=== PATIENT | male | born 1960 | race Caucasian/White ===

== ENCOUNTER 2017-07-16 16:53 | Emergency (ER) | payer MEDICARE ==
--- NOTE | 2017-07-16 18:44 | RAD ---
LEFT HAND RADIOGRAPHS THREE VIEWS: 07/16/2017 PROVIDED CLINICAL HISTORY: Left fourth digit pain status post injury. FINDINGS: There is no definite evidence for fracture or other acute osseous abnormality. If there is persisten t clinical concern, conservative management and follow-up imaging are advised. IMPRESSION: As above. POS: CARLOS A
== END 2017-07-16 17:59 | disposition home or self-care (01) ==
LOC: SCSER 16:53
DX: S63.615A Unspecified sprain of left ring finger, initial encounter (principal); Y99.0 Civilian activity done for income or pay; D13.7 Benign neoplasm of endocrine pancreas; E03.9 Hypothyroidism, unspecified; G62.9 Polyneuropathy, unspecified; Z79.899 Other long term (current) drug therapy; W22.8XXA Striking against or struck by other objects, initial encounter

== ENCOUNTER 2017-12-16 22:32 | Emergency (ER) | payer MEDICARE | END 2017-12-16 23:25 | disposition home or self-care (01) | LOC: SCSER 22:32 | DX: H60.92 Unspecified otitis externa, left ear (principal); E03.9 Hypothyroidism, unspecified; G62.9 Polyneuropathy, unspecified; D13.7 Benign neoplasm of endocrine pancreas | CPT/HCPCS: 99282 ==

== ENCOUNTER 2018-05-03 00:10 | Emergency (ER) | payer MEDICARE ==
[2018-05-03 00:44] LABS: #Eosinphils 0.3 thou/uL (0.0-0.7); #Lymphocytes 1.8 thou/uL (1.20-3.40); #Monocytes 0.8 thou/uL (0.11-0.59); #Neutrophils 5.3 thou/uL (1.40-6.50); %Basophils 0.4 % (0.0-1.0); %Eosinophils 3.1 % (0.0-10.0); %Lymphocytes 22.5 % (21.0-51.0); %Monocytes 9.7 % (0.0-10.0); %Neutrophils 64.3 % (42.0-75.0); Hemoglobin 16.2 g/dL (14.0-18.0); Mean Corpuscular HGB CONC 32.9 g/dL (32.0-36.0); Mean Corpuscular Hemoglobin 31.8 pg (27.0-31.0); Mean Corpuscular Volume 96.8 fL (78.0-98.0); Mean Platelet Volume 7.5 fL (7.4-10.4); Platelet Count 227 thou/uL (130-400); RBC Distribution Width 12.6 % (11.5-14.5); Red Blood Cell (RBC) Count 5.11 mill/uL (4.70-6.10); White Blood Cell (WBC) Count 8.2 thou/uL (4.8-10.8)
[2018-05-03 01:07] LABS: ALT (SGPT) 34 U/L (8-55); AST (SGOT) 39 U/L (5-34); Albumin 4.2 g/dL (3.5-5.0); Alkaline Phosphatase 37 U/L (40-150); Anion Gap 15 mmol/L (10-20); BUN (Urea Nitrogen) 10 mg/dL (8.4-25.7); Bilirubin, Total 0.4 mg/dL (0.2-1.2); Calc. Creatinine Clearance 0 mL/min (70-130); Calcium 8.9 mg/dL (7.8-10.44); Carbon Dioxide 22 mmol/L (22-29); Chloride 104 mmol/L (98-107); Estimated GFR-MDRD 74; Globulin 3.3 g/dL (2.4-3.5); Glucose 94 mg/dL (70-105); Potassium 4.6 mmol/L (3.5-5.1); Protein, Total 7.5 g/dL (6.0-8.3); Sodium 136 mmol/L (136-145)
[2018-05-03] MEDS ORDERED: HYDROcodone/Acetaminophen 10/325 mg Tablet ONE (01:30)
[2018-05-03] MEDS ORDERED: Ketorolac Tromethamine 30 MG/ML VIAL ONE (01:30)
--- NOTE | 2018-05-03 07:47 | CT ---
CT OF THE BRAIN WITHOUT CONTRAST: INDICATION: Syncope, collapsed hitting head with low blood sugar. COMPARISON: CT of the brain dated 07/10/2014. FINDINGS: No acute infarct, hemorrhage, or hydrocephalus is present. Septum pellucidum and third ventricle are midline. There are air fluid levels within the left maxillary sinuses, ethmoid air cells, frontal s inus, and sphenoid sinus. No visible facial fracture is grossly evident. There are partial effusion s within the mastoid air cells bilaterally. IMPRESSION: 1. No acute intracranial abnormality. 2. Multiple air fluid levels within the frontal sinus, ethmoid air cells, maxillary sinuses, and sph enoid sinus can be seen with acute sinusitis. POS: BH
--- NOTE | 2018-05-03 07:49 | CT ---
CT OF CERVICAL SPINE WITHOUT CONTRAST: INDICATION: Syncopal episode with fall and neck pain. COMPARISON: Prior exam dated 07/10/2014. 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 No acute fracture or subluxation is evident. There is mild multilevel spondylosis of the cervical spine. Craniocervical junction appears within normal limits. There are partial mastoid effusions bilaterally. Lung apice s are clear. IMPRESSION: 1. No acute fracture or subluxation is evident. 2. Bilateral mastoid effusions. POS: BH
--- NOTE | 2018-05-10 10:38 | EKG ---
Test Reason : Blood Pressure : / mmHG Vent. Rate : 062 BPM Atrial Rate : 062 BPM P-R Int : 154 ms QRS Dur : 112 ms QT Int : 412 ms P-R-T Axes : 048 -48 038 degrees QTc Int : 418 ms Normal sinus rhythm Left anterior fascicular block Abnormal ECG Confirmed by RD ALBRIGHT ([id number]), digital editor JOSÉ MIGUEL FAN ([id number]) on 05/10/2018 10:37:21 AM Referred By: Confirmed By:RD ALBRIGHT
== END 2018-05-03 02:05 | disposition home or self-care (01) ==
LOC: ERS 00:10
DX: S16.1XXA Strain of muscle, fascia and tendon at neck level, initial encounter (principal); S00.93XA Contusion of unspecified part of head, initial encounter; J32.9 Chronic sinusitis, unspecified; E16.2 Hypoglycemia, unspecified; Z79.899 Other long term (current) drug therapy; W22.8XXA Striking against or struck by other objects, initial encounter
CPT/HCPCS: 36416; 70450; 72125; 80053; 85025; 93005; 96374; J1885

== ENCOUNTER 2018-06-13 15:48 | Inpatient (IN) | payer MEDICARE ==
[~2018-06-13 15:48] MED LIST: ISOVUE-370 76%-LOCM 1 ML ONE
[2018-06-13 17:42] LABS: Hemoglobin 16.3 g/dL (14.0-18.0); Mean Corpuscular HGB CONC 32.5 g/dL (32.0-36.0); Mean Corpuscular Hemoglobin 31.3 pg (27.0-31.0); Mean Corpuscular Volume 96.1 fL (78.0-98.0); Mean Platelet Volume 7.8 fL (7.4-10.4); Platelet Count 158 thou/uL (130-400); RBC Distribution Width 12.3 % (11.5-14.5); Red Blood Cell (RBC) Count 5.22 mill/uL (4.70-6.10); White Blood Cell (WBC) Count 23.5 thou/uL (4.8-10.8)
[2018-06-13] MEDS ORDERED: Morphine 4 MG/ML VIAL ONE (17:58)
[2018-06-13] MEDS ORDERED: Ondansetron PF 4 MG/2 ML Vial ONE (17:59)
[2018-06-13 18:01] LABS: Anion Gap 12 mmol/L (10-20); BUN (Urea Nitrogen) 17 mg/dL (8.4-25.7); Calc. Creatinine Clearance 0 mL/min (70-130); Calcium 9.5 mg/dL (7.8-10.44); Carbon Dioxide 28 mmol/L (22-29); Chloride 100 mmol/L (98-107); Estimated GFR-MDRD 60; Glucose 111 mg/dL (70-105); Potassium 3.9 mmol/L (3.5-5.1); Sodium 136 mmol/L (136-145)
[2018-06-13 18:03] LABS: Band 10 % (5-11); Lymphocytes 4 % (21-51); MDiff Complete? YES; Monocytes 3 % (0-10); Neutrophil 83 % (42-75); Platelet Morphology Comment Appears Adequate; RBC Morphology Normal; Vacuoles SLIGHT
--- NOTE | 2018-06-13 18:47 | CT ---
CONTRAST ENHANCED CT IMAGES PELVIS: 06/13/18 HISTORY: Pelvic pain. Contrast enhanced CT images of the pelvis is obtained. No evidence of free air seen in the pelvis. N o definite evidence of bowel obstruction or ileus seen. No evidence of pelvic abscess. The patient has had previous bilateral vasectomies. No definite evidence of pelvic fracture seen. Nonobstructing posterior aspect mid right renal calculus is seen. It measures approximately 4 mm. IMPRESSION: Unremarkable contrast enhanced CT images of the pelvis. POS: DARIA
[2018-06-13] MEDS ORDERED: Piperacillin/Tazobactam 4.5 GM VIAL ONE (18:51)
--- NOTE | 2018-06-13 19:03 | RAD ---
AP VIEW CHEST: 06/13/18 HISTORY: Cough for three months. AP view chest is obtained on 06/13/18. AP view chest demonstrates EKG leads seen over the chest. The lungs are well aerated. No evidence of active intrathoracic disease seen. No evidence of effusions, pneumonia, or pneumothorax seen. IMPRESSION: Unremarkable AP view chest. POS: [facility]
[2018-06-13] MEDS ORDERED: Clindamycin/D5W 900 mg/50 ml Premix Bag ONE (19:32)
[2018-06-13] MEDS ORDERED: Morphine 4 MG/ML VIAL SLOW IVP PRN (22:40)
[2018-06-13 23:02] VITALS: BMI 24.5
[2018-06-14] MEDS: Sodium Chloride 0.9% 1,000 ML IV SCH ×2 (00:53→14:17)
[2018-06-14] MEDS ORDERED: Acetaminophen 325 MG TAB PO PRN (01:02)
[2018-06-14] MEDS ORDERED: Ondansetron ODT 4 MG TAB PO PRN (01:20)
[2018-06-14] MEDS ORDERED: Calcium Carbonate 500 MG ChewTAB PO PRN (01:20)
[2018-06-14] MEDS ORDERED: Bisacodyl 5 MG TAB PO PRN (01:20)
[2018-06-14] MEDS ORDERED: Senokot S 8.6-50 MG TAB PO PRN (01:20)
[2018-06-14] MEDS ORDERED: Ondansetron PF 4 MG/2 ML Vial IVP PRN (01:20)
[2018-06-14] MEDS ORDERED: Polyethylene Glycol 3350 17 GM Packet PO PRN (01:26)
[2018-06-14] MEDS: cefTRIAXone\\ROCEPHIN 1 GM in Sodium Chloride 0.9% 100 ML IVPB SCH (02:08)
[2018-06-14] MEDS: Lorazepam 1 MG TAB PO PRN ×2 (02:14→21:20)
[2018-06-14] MEDS: diphenhydrAMINE 25 MG CAP PO PRN ×2 (02:14→23:57)
--- NOTE | 2018-06-14 02:32 | HP ---
The patient was seen and examined on June 13. PRIMARY CARE PHYSICIAN: Dr. Saunders. CHIEF COMPLAINT: Skin redness in the perineal area. HISTORY OF PRESENT ILLNESS: The patient is a 57-year-old male who presented to the emergency room from [facility] due to significant erythema and swelling in the groin area that started 3-4 days ago. This is progressively getting worse. He noticed 2 superficial skin abscesses, which he drained by himself. He also had a fever of up to 101 degree Fahrenheit along with chills. Over the last 2 days, the patient has not been eating and drinking well due to persistent nausea. He denies any diarrhea, abdominal pain, abdominal pain. He had some vomiting earlier that is improving. He denies any cough, shortness of breath, wheezing, or altered mentation. In the emergency room, initial vital signs showed temperature 98.9, respiration 18, pulse rate of 103 with a blood pressure of 121/70, O2 saturation of 95% on room air. He had a temperature of 101 at [facility]. He received 60 mg Toradol prior to ER arrival. PAST MEDICAL HISTORY: 1. History of nesidioblastosis of the pancreas. 2. Morbid obesity, status post gastric bypass. 3. Hypothyroidism. 4. Hypogonadism on testosterone supplement. 5. History of multiple pulmonary embolism. 6. History of renal calculi. 7. Gout. 8. Chronic pain syndrome. PAST SURGICAL HISTORY: 1. Cholecystectomy. 2. Skin cancer removal. 3. Excess skin removal from the abdomen. 4. Gastric bypass. 5. Vasectomy. 6. Gastric band revision in 2004. 7. Hernia repair. 8. Partial thyroidectomy. ALLERGIES: PATIENT IS UNABLE TO TOLERATE NSAIDS. CURRENT HOME MEDICATION: 1. Perry as needed. 2. Lorazepam as needed. 3. Zyrtec 10 mg daily. 4. Colchicine 0.6 mg daily. 5. Benadryl as needed. 6. Ferrous sulfate 325 mg daily. 7. Synthroid 100 mcg daily. 8. Tramadol 100 mg b.i.d. SOCIAL HISTORY: The patient currently lives at home with his family. No current use of smoking, alcohol, or drug use. He makes his own decision with the help of his family. FAMILY HISTORY: Positive for diabetes mellitus type 2. REVIEW OF SYSTEMS: All other review of systems was reviewed and were found negative. PHYSICAL EXAMINATION: All other review of systems was reviewed and were found negative. PHYSICAL EXAMINATION: VITAL SIGNS: As discussed above. GENERAL: A 57-year-old male in no apparent distress, feels better after ER treatment. HEENT: Head is atraumatic and normocephalic. Sclerae anicteric. Moist mucous membranes. No oral lesion. NECK: Supple. No JVD appreciated. No carotid bruit. LUNGS: Clear to auscultation bilaterally. No wheezing, rales, rhonchi. HEART: S1, S2 present. Regular rate and rhythm. No rubs or gallops appreciated. ABDOMEN: Soft, nontender. Bowel sounds present. EXTREMITIES: No edema or calf tenderness. NEUROLOGY: Grossly nonfocal. Moves all 4 extremities. GENITOURINARY: The patient had significant erythema along with induration in the perineal area. Healing folliculitis over the inguinal area. There was erythema over the scrotal skin without any skin breakdown. No tenderness over the testicle. The patient is circumcised. PSYCHIATRY: Alert awake oriented x3. LABORATORY FINDINGS: WBC 23.5 with hemoglobin 16.3, hematocrit 50.1, platelet 158. Chemistry showed sodium 136, potassium 3.9, chloride 100, bicarb 28, BUN 17, and creatinine 1.24. Lactic acid 1.5, calcium 9.5. IMAGIN. Chest x-ray by my review was negative for infiltrate. 2. CT of the pelvis done in the emergency room with contrast was negative. It showed a 4 mm non-obstructing mid right renal calculus. IMPRESSION: 1. Sepsis secondary to cellulitis with suspected abscess. 2. Dehydration with nausea and vomiting. 3. Chronic kidney disease, stage 2. 4. Hypothyroidism. 5. Chronic pain syndrome. 6. History of nesidioblastosis diagnosed in 2004 with several hypoglycemic events. 7. History of gout. 8. Anxiety. 9. Seasonal allergies. PLAN: The patient will be monitored on the medical floor. He received vancomycin and Zosyn in the emergency room along with clindamycin. We will start him on vancomycin and ceftriaxone. We will consult Infectious Disease. Pain control with IV morphine and Perry as needed. We will continue his home dose of tramadol. Resume all other home medications. We will monitor for hypoglycemia. The family is at the bedside. Recheck labs in a.m. Resume levothyroxine. Add blood cultures. Plan of care was discussed with the patient in detail. He stated understanding. Job ID: [id number] MTDD
[2018-06-14] MEDS: Morphine 2 MG/ML SYRINGE SLOW IVP PRN ×4 (02:42→21:22)
[2018-06-14 04:43] LABS: ALT (SGPT) 21 U/L (8-55); AST (SGOT) 19 U/L (5-34); Albumin 3.3 g/dL (3.5-5.0); Alkaline Phosphatase 33 U/L (40-150); Anion Gap 11 mmol/L (10-20); BUN (Urea Nitrogen) 17 mg/dL (8.4-25.7); Bilirubin, Total 0.5 mg/dL (0.2-1.2); Calc. Creatinine Clearance 91 mL/min (70-130); Calcium 8.9 mg/dL (7.8-10.44); Carbon Dioxide 25 mmol/L (22-29); Chloride 104 mmol/L (98-107); Estimated GFR-MDRD 83; Globulin 2.9 g/dL (2.4-3.5); Glucose 120 mg/dL (70-105); Magnesium 1.8 mg/dL (1.6-2.6); Potassium 3.2 mmol/L (3.5-5.1); Protein, Total 6.2 g/dL (6.0-8.3); Sodium 137 mmol/L (136-145)
[2018-06-14 04:57] LABS: Band 7 % (5-11); Hemoglobin 14.4 g/dL (14.0-18.0); Lymphocytes 8 % (21-51); MDiff Complete? YES; Mean Corpuscular HGB CONC 33.7 g/dL (32.0-36.0); Mean Corpuscular Hemoglobin 31.8 pg (27.0-31.0); Mean Corpuscular Volume 94.6 fL (78.0-98.0); Mean Platelet Volume 8.1 fL (7.4-10.4); Monocytes 8 % (0-10); Neutrophil 75 % (42-75); Platelet Count 150 thou/uL (130-400); Platelet Morphology Comment Appears Adequate; RBC Distribution Width 12.3 % (11.5-14.5); RBC Morphology Normal; Reactive Lymphocytes 2 % (0-10); Red Blood Cell (RBC) Count 4.51 mill/uL (4.70-6.10); White Blood Cell (WBC) Count 18.2 thou/uL (4.8-10.8)
[2018-06-14] MEDS: Levothyroxine Sodium 100 MCG TAB PO SCH (06:08)
[2018-06-14] MEDS ORDERED: Cetirizine HCl 10 MG TAB PO SCH (09:00)
[2018-06-14] MEDS: Vancomycin HCl 1 GM in Premix Bag 1 BAG IVPB SCH ×2 (09:33→20:51)
[2018-06-14] MEDS: HYDROcodone/Acetaminophen 10/325 mg Tablet PO PRN ×3 (09:39→18:02)
[2018-06-14] MEDS: Potassium Chloride 20 MEQ TAB PO SCH ×2 (09:40→17:15)
[2018-06-14] MEDS: traMADol HCl 50 MG TAB PO SCH ×2 (09:40→20:53)
[2018-06-14] MEDS: Ferrous Sulfate 325 MG TAB PO SCH (09:41)
[2018-06-14] MEDS: Saccharomyces boulardii 250 MG CAP PO SCH (09:41)
[2018-06-14] MEDS: Loratadine 10 MG TAB PO SCH (09:41)
[2018-06-14] MEDS: Colchicine 0.6 MG TAB PO SCH (09:41)
[2018-06-14] MEDS ORDERED: Nystatin Powder 15 GM BOT TOP PRN (10:25)
--- NOTE | 2018-06-14 11:56 | ULT ---
SCROTAL ULTRASOUND WITH GRAYSCALE AND DOPPLER COLOR FLOW: LIMITED PELVIC ULTRASOUND OF SOFT TISSUES: FINDINGS: Doppler evaluation does reveal flow to each testis. No intratesticular mass or torsion evident. No significant hydrocele. Small epididymal cyst formation noted. There is marked thickening of the scrotal soft tissues. Extensive edema with multifocal small collec tions is demonstrated throughout the regional soft tissues including the perianal, gluteal, and suprapubic soft tissues, indicative of diffuse soft tissue infection, with multiple localizing foci t hat may relate to numerous superimposed abscesses upon inflammatory/infectious edema. Reactive adenopathy is noted. IMPRESSION: 1. Extensive soft tissue infection of the suprapubic, perianal, and gluteal soft tissues. 2. Scrotal soft tissue thickening. 3. No evidence of testicular torsion or mass. Transcribed Date/Time: 06/14/2018 12:47 PM
[2018-06-14] MEDS: Triple Antibiotic Ointment 30 GM TUBE TOP SCH ×2 (13:08→20:52)
--- NOTE | 2018-06-14 14:39 | PDOC.PN ---
- Subjective Encounter Start Date: 06/14/18 Encounter Start Time: 14:37 Subjective: braun snot feel good. c/o severe pain in luciano perineal area -: c/o swelling,redness and induration in perineal and gluteal area -: fever last night and feels weak and nauseated - Objective Resuscitation Status - Order Detail: 06/14/18 01:20 Resuscitation Status Routine Resuscitation Status: FULL: Full Resuscitation MAR Reviewed: Yes Vital Signs & Weight: Vital Signs (12 hours) Temp Pulse Resp BP BP Pulse Ox 06/14/18 14:07 98.6 F 06/14/18 08:00 98 06/14/18 07:15 99.1 F 81 16 100/63 98 06/14/18 04:48 98.9 F 73 18 107/64 95 06/14/18 03:35 101.1 F H 06/14/18 03:03 102.5 F H Weight Admit Weight 165 lb 11.2 oz Weight 165 lb 11.2 oz Result Diagrams: 06/14/18 04:20 06/14/18 04:20 Additional Labs: Laboratory Tests 06/13/18 06/14/18 17:33 04:20 WBC 23.5 H 18.2 H Phys Exam - Physical Examination Constitutional: NAD HEENT: PERRLA, moist MMs, sclera anicteric, oral pharynx no lesions Neck: no nodes, no JVD, supple, full ROM Respiratory: no wheezing, no rales, no rhonchi, clear to auscultation bilateral Cardiovascular: RRR, no significant murmur Gastrointestinal: soft, non-tender, no distention, positive bowel sounds horijontal abdominal scar from :Tummy Tuck" Sx Musculoskeletal: no edema, pulses present Neurological: non-focal, normal sensation, moves all 4 limbs Psychiatric: normal affect, A&O x 3 Deviation from normal: extensive induration,localized in several areas around perineum w warmth & Dx/Plan (1) Sepsis Code(s): A41.9 - SEPSIS, UNSPECIFIED ORGANISM Status: Acute (2) Abscess or cellulitis of perineum Code(s): SMM9258 - Status: Acute (3) Hypokalemia Code(s): E87.6 - HYPOKALEMIA Status: Acute Comment: replace and recheck (4) Dehydration Code(s): E86.0 - DEHYDRATION Status: Acute Comment: on IVF (5) Hypothyroid Code(s): E03.9 - HYPOTHYROIDISM, UNSPECIFIED Status: Chronic Comment: on Synthyroid (6) Hypogonadism Code(s): [id number] - Status: Chronic Comment: On testosterone at home - Plan plan discussed w/ family, continue antibiotics, DVT proph w/SCDs Pelvic & testicular US done and does not show any specific abscess -: cont IV ABx .Awaiting ID recs -: HD stable. cont IVF.Add topical nystattin as physical -: exam show possible local candidiasis & folliculitis.start Topical ABX -: WBC improving.monitor. * . Review of Systems - Review of Systems Constitutional: fever, sweats, weakness, malaise. negative: chills, other ENT: negative: Ear Pain, Ear Discharge, Nose Pain, Nose Discharge, Nose Congestion, Mouth Pain, Mouth Swelling, Throat Pain, Throat Swelling, Other Respiratory: negative: Cough, Dry, Shortness of Breath, Hemoptysis, SOB with Excertion, Pleuritic Pain, Sputum, Wheezing Cardiovascular: negative: chest pain, palpitations, orthopnea, paroxysmal nocturnal dyspnea, edema, light headedness, other Gastrointestinal: negative: Nausea, Vomiting, Abdominal Pain, Diarrhea, Constipation, Melena, Hematochezia, Other Genitourinary: Other (as per subjective). negative: Dysuria, Frequency, Incontinence, Hematuria, Retention Skin: Other Neurological: negative: Weakness, Numbness, Incoordination, Change in Speech, Confusion, Seizures, Other - Medications/Allergies Allergies/Adverse Reactions: Allergies Allergy/AdvReac Type Severity Reaction Status Date / Time Insulins Allergy Severe Verified 06/14/18 02:21 NSAIDS (Non-Steroidal Allergy Verified 06/13/18 22:22 Anti-Inflamma Medications: Current Medications Acetaminophen (Tylenol) 650 mg PO Q4H PRN PRN Reason: Headache/Fever/Mild Pain 1-3 Last Admin: 06/14/18 02:50 Dose: 650 mg Hydrocodone Bitart/Acetaminophen ([place] 10/325) 1 tab PO Q4H PRN PRN Reason: Mild-Moderate Pain (1-5) Last Admin: 06/14/18 14:09 Dose: 1 tab Bisacodyl (Dulcolax) 10 mg PO DAILYPRN PRN PRN Reason: Constipation Calcium Carbonate (Tums) 1,000 mg PO Q4H PRN PRN Reason: Heartburn or Indigestion Colchicine (Colchicine) 0.6 mg PO DAILY [facility] Last Admin: 06/14/18 09:41 Dose: 0.6 mg Diphenhydramine HCl (Benadryl) 25 mg PO HS PRN PRN Reason: Insomnia Last Admin: 06/14/18 02:14 Dose: 25 mg Ferrous Sulfate (Feosol) 325 mg PO DAILY [facility] Last Admin: 06/14/18 09:41 Dose: 325 mg Sodium Chloride (Normal Saline 0.9%) 1,000 mls @ 75 mls/hr IV .[id number] [facility] Stop: 06/15/18 02:54 Last Admin: 06/14/18 14:17 Dose: 1,000 mls Vancomycin HCl 1 gm/ Device 200 mls @ 200 mls/hr IVPB Q12HR [facility] Last Admin: 06/14/18 09:33 Dose: 200 mls Ceftriaxone Sodium 1 gm/ (Sodium Chloride) 100 mls @ 200 mls/hr IVPB Q24HR [facility] Last Admin: 06/14/18 02:08 Dose: 100 mls Levothyroxine Sodium (Synthroid) 100 mcg PO 0600 [facility] Last Admin: 06/14/18 06:08 Dose: 100 mcg Lidocaine HCl (Lidocaine Hcl 4% Topical Alyssa) 2 ml TP BID [facility] Loratadine (Claritin) 10 mg PO DAILY [facility] Last Admin: 06/14/18 09:41 Dose: 10 mg Lorazepam (Ativan) 1 mg PO Q8HR PRN PRN Reason: Anxiety Last Admin: 06/14/18 02:14 Dose: 1 mg Miscellaneous Medication (Pharmacy To Dose) 1 each IVPB PRN PRN PRN Reason: Pharmacy to dose Morphine Sulfate (Morphine) 2 mg SLOW IVP Q4H PRN PRN Reason: Moderate to Severe Pain (6-10) Last Admin: 06/14/18 13:06 Dose: 2 mg Neomycin/Polymyxin/Bacitracin (Triple Antibiotic Ointment) 2 gm TOP BID [facility] Last Admin: 06/14/18 13:08 Dose: Not Given Nystatin (Mycostatin Powder) 1 gm TOP BID PRN PRN Reason: Topical Irritations Ondansetron HCl (Zofran Odt) 4 mg PO Q6H PRN PRN Reason: Nausea/Vomiting Ondansetron HCl (Zofran) 4 mg IVP Q6H PRN PRN Reason: Nausea/Vomiting Polyethylene Glycol (Miralax) 17 gm PO DAILY PRN PRN Reason: Constipation Potassium Chloride (K-Dur) 20 meq PO BID-[facility] Stop: 06/14/18 17:01 Last Admin: 06/14/18 09:40 Dose: 20 meq Saccharomyces Boulardii (Florastor) 250 mg PO DAILY [facility] Last Admin: 06/14/18 09:41 Dose: 250 mg Senna/Docusate Sodium (Senokot S) 2 tab PO BID PRN PRN Reason: Constipation Sodium Chloride (Flush - Normal Saline) 10 ml IVF PRN PRN PRN Reason: Saline Flush Tramadol HCl (Ultram) 100 mg PO BID [facility] Last Admin: 06/14/18 09:40 Dose: 100 mg
[2018-06-14] MEDS: Potassium Chloride 20 MEQ in Premix Bag 1 BAG IVPB SCH ×2 (16:39→23:57)
[2018-06-14] MEDS: LIDOCAINE HCL 4% Topical Sol (4 ML SOLN.PK.G.) TP SCH (20:52)
--- NOTE | 2018-06-14 23:29 | CON ---
DATE OF CONSULTATION: 06/14/2018 REASON FOR CONSULTATION: Perineal scrotal folliculitis. HISTORY OF PRESENT ILLNESS: A 57-year-old patient with a history of sleeve gastrectomy followed by gastric bypass who subsequently developed pulmonary embolism, which was an event associated with the immobility secondary to a surgical procedure. 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 He was diagnosed with nesidioblastosis. Other than that he had been doing quite well, has lost tremendous amount of weight about 400 pounds. He is retired and is quite affluent and has numerous residences throughout the country. He had just returned from a trip to [place] and [place] with his and then developed a very acute onset of groin inflammatory changes. The patient has the habit of shaving his pubic hair and scrotal hair. He was admitted, had a pelvis CT scan with no remarkable findings. He had a pelvic and renal ultrasound with extensive soft tissue inflammatory changes suprapubic, perianal and gluteal soft tissues and some scrotal soft tissue thickening. There was a testicular ultrasound with the findings of inflammatory change as described above. He has been started on broad-spectrum coverage with Rocephin and vancomycin. Currently, he feels still a quite painful skin in those areas. He has noticed purulent drainage in couple of spots. He denies headaches, no visual symptoms, sore throat, odynophagia, dysphagia, no dental pain, no back pain, no cough, sputum production, or chest pain. No abdominal pain or diarrhea. No dysuria or hematuria. No joint symptoms. No neurological symptoms. 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 PAST SURGICAL HISTORY: Cholecystectomy, skin cancer removal, gastric bypass and this is following a sleeve gastrectomy, vasectomy, hernia repair, partial thyroidectomy. ALLERGIES: NO SPECIFIC HYPERSENSITIVITY TO ANY MEDICATION. SOCIAL HISTORY: He is retired. No smoking history. No drug use history. MEDICATIONS BEFORE ADMISSION,: 1. Hydrocodone. 2. Synthroid. 3. Colchicine. 4. Sildenafil. 5. Tramadol. Currently is receivin. Dulcolax. 2. Ceftriaxone. 3. [place]. 4. Colchicine. 5. Levothyroxine. 6. Lorazepam. 7. Neomycin and polymyxin. 8. Ondansetron. 9. Potassium. 10. Tramadol. 11. Vancomycin. PHYSICAL EXAMINATION: VITAL SIGNS: T-max 102.5, now is 98.5, blood pressure 109/66, pulse 70, respirations 20, O2 saturation 94% to 98%. SKIN: Shows the areas of follicular inflammatory change with quite a bit of soft tissue induration around the scrotal pubic area. All the hair has been clipped or shaved by the patient, which is something he does routinely for many years now. No areas of skin involvement noticeable at this time. No lymphadenopathy. HEENT: Ocular movements conjugate. Sclerae white. Numerous teeth in place. Most of them are dental implants or crowns. NECK: Supple. No jugular vein distention or carotid bruits. LUNGS: Symmetric. Clear breath sounds. HEART: S1 and S2, regular rate. No S3 or S4. ABDOMEN: Soft, not distended or tender. No ascites. No bladder distention. GENITOURINARY: There is no testicular swelling mostly just soft tissues of the skin around the scrotal area with multiple areas of follicular inflammatory change and induration in a quite symmetric distribution, right and left side, also in the suprapubic area. EXTREMITIES: No joint inflammatory activity. Pulses 1+ in dorsalis pedis. Moves all extremities equally. NEUROLOGIC: Cognitive function appears to be intact. LABORATORY DATA: 1. White cell count is 23,000 and now 18, hemoglobin 14, platelets 150 with 75% neutrophils, on arrival was 83%. Chemistry with normal transaminases. Albumin 3.3. Previous serology included positive HSV serology. HIV was nonreactive. Hepatitis B and C nonreactive, this is from 2016, He has had a rheumatoid factor, which was negative. On microbiology, we have 2 sets of blood cultures now which are negative thus far. Imaging studies have been discussed above. ASSESSMENT: 1. History of gastric bypass with marked weight loss. 2. Acute onset of folliculitis in the pubic and scrotal skin area. DISCUSSION: This could be the reflection of new acquisition of a pathogenic or more virulent strain of Staphylococcus aureus. It is less likely to represent hidradenitis. It is likely that this shaving has contributed to the patient's symptoms, in other words that he acquired a new pathogen colonization and then proceeded to continue with his practice of shaving and then developed this complication. I was able to get 1 good sample with purulent exudate and we will submit to the lab for cultures and then decide what nature of this process is. Testosterone supplementation can be associated with follicular plugging and acneiform lesions, typically those that are localized in the face and chest, but I guess it could be also in the perineal area. Job ID: [id number] MTDD
[2018-06-15] MEDS: cefTRIAXone\\ROCEPHIN 1 GM in Sodium Chloride 0.9% 100 ML IVPB SCH (01:35)
[2018-06-15] MEDS: HYDROcodone/Acetaminophen 10/325 mg Tablet PO PRN ×3 (06:09→17:37)
[2018-06-15] MEDS: Levothyroxine Sodium 100 MCG TAB PO SCH (06:09)
[2018-06-15 06:47] LABS: #Eosinphils 0.6 thou/uL (0.0-0.7); #Lymphocytes 1.4 thou/uL (1.20-3.40); #Neutrophils 10.4 thou/uL (1.40-6.50); %Basophils 0.2 % (0.0-1.0); %Eosinophils 4.6 % (0.0-10.0); %Lymphocytes 10.7 % (21.0-51.0); %Monocytes 7.5 % (0.0-10.0); %Neutrophils 76.9 % (42.0-75.0); Hemoglobin 13.4 g/dL (14.0-18.0); Mean Corpuscular HGB CONC 32.7 g/dL (32.0-36.0); Mean Corpuscular Hemoglobin 31.6 pg (27.0-31.0); Mean Corpuscular Volume 96.8 fL (78.0-98.0); Mean Platelet Volume 8.1 fL (7.4-10.4); Platelet Count 169 thou/uL (130-400); RBC Distribution Width 12.1 % (11.5-14.5); Red Blood Cell (RBC) Count 4.25 mill/uL (4.70-6.10); White Blood Cell (WBC) Count 13.5 thou/uL (4.8-10.8)
[2018-06-15 06:58] LABS: ALT (SGPT) 45 U/L (8-55); AST (SGOT) 100 U/L (5-34); Albumin 3.1 g/dL (3.5-5.0); Alkaline Phosphatase 30 U/L (40-150); Anion Gap 9 mmol/L (10-20); BUN (Urea Nitrogen) 10 mg/dL (8.4-25.7); Bilirubin, Total 0.3 mg/dL (0.2-1.2); Calc. Creatinine Clearance 106 mL/min (70-130); Calcium 8.6 mg/dL (7.8-10.44); Carbon Dioxide 26 mmol/L (22-29); Chloride 106 mmol/L (98-107); Estimated GFR-MDRD Greater than 90; Globulin 2.8 g/dL (2.4-3.5); Glucose 88 mg/dL (70-105); Potassium 3.5 mmol/L (3.5-5.1); Protein, Total 5.9 g/dL (6.0-8.3); Sodium 137 mmol/L (136-145)
[2018-06-15 08:12] LABS: Vancomycin, Trough 7.7 ug/mL
[2018-06-15] MEDS: Ferrous Sulfate 325 MG TAB PO SCH (09:56)
[2018-06-15] MEDS: Saccharomyces boulardii 250 MG CAP PO SCH (09:56)
[2018-06-15] MEDS: Colchicine 0.6 MG TAB PO SCH (09:56)
[2018-06-15] MEDS: Vancomycin HCl 1 GM in Premix Bag 1 BAG IVPB SCH ×3 (09:56→17:37)
[2018-06-15] MEDS: traMADol HCl 50 MG TAB PO SCH ×2 (09:56→20:16)
[2018-06-15] MEDS: Loratadine 10 MG TAB PO SCH (09:56)
[2018-06-15] MEDS: Triple Antibiotic Ointment 30 GM TUBE TOP SCH ×2 (09:57→20:08)
[2018-06-15] MEDS: LIDOCAINE HCL 4% Topical Sol (4 ML SOLN.PK.G.) TP SCH ×2 (09:57→20:08)
--- NOTE | 2018-06-15 10:57 | PDOC.PN ---
- Subjective Encounter Start Date: 06/15/18 Encounter Start Time: 10:56 Patient seen and examined, states he has no new issues, family at bedside, all questions answered. - Objective Resuscitation Status - Order Detail: 06/14/18 01:20 Resuscitation Status Routine Resuscitation Status: FULL: Full Resuscitation Vital Signs & Weight: Vital Signs (12 hours) Temp Pulse Resp BP Pulse Ox 06/15/18 08:00 97 06/15/18 07:17 98.1 F 65 18 106/68 97 Weight Admit Weight 165 lb 11.2 oz Weight 165 lb 11.2 oz I&O: 06/14/18 06/15/18 06/16/18 06:59 06:59 06:59 Intake Total 1934 Balance 1934 Result Diagrams: 06/15/18 05:57 06/15/18 05:57 Phys Exam - Physical Examination Constitutional: NAD HEENT: PERRLA, moist MMs, sclera anicteric Neck: no nodes, no JVD, supple Respiratory: no wheezing, no rales, no rhonchi Cardiovascular: RRR, no significant murmur, no rub Gastrointestinal: soft, non-tender, no distention, positive bowel sounds Musculoskeletal: no edema, pulses present Neurological: non-focal, normal sensation Dx/Plan (1) Abscess or cellulitis of perineum Code(s): [id number] - Status: Acute (2) Dehydration Code(s): E86.0 - DEHYDRATION Status: Acute Comment: on IVF (3) Sepsis Code(s): A41.9 - SEPSIS, UNSPECIFIED ORGANISM Status: Acute (4) Hypothyroid Code(s): E03.9 - HYPOTHYROIDISM, UNSPECIFIED Status: Chronic Comment: on Synthyroid - Plan * cont IV abx * recommended not to shave groin region * WBC count decreasing * cultures done yesterday, will await results * no changes in plan of care for now * ID following * case and plan d/w patient and family at length, they understood and agreed with this plan
--- NOTE | 2018-06-15 16:01 | PRG ---
DATE OF SERVICE: 06/15/2018 SUBJECTIVE: Mr. Abarca is still having quite a bit of pain in the perineal area. He noticed that one of the lesions started to drain purulent exudate in the left side. He also has noticed a cough. He has had this cough now for quite a few months and reportedly has been worked up elsewhere with CT of chest, but not with sputum exams. The last CT of chest I see here is from 2012 and it did not show any pulmonary embolism. No adenopathy. There were some minimal atelectasis, demonstrated. Denies any abdominal pain. No diarrhea. OBJECTIVE: VITAL SIGNS: Temperature max is 98.1. Other vital signs are normal. GENERAL: Awake, alert, oriented, appears in no distress. LUNGS: With expiratory wheezing scattered throughout both hemithoraces and inspiratory crackles particularly in the lower thirds of right and left lung. HEART: S1 and S2. Regular rate. No S3, S4, or murmurs. ABDOMEN: Soft not distended. PELVIC: The perineal area with multiple skin abscesses, some of them draining some not yet. There is a prominent one in the posterior perineal area right behind the scrotum bilateral, which is bigger on the left side. LABORATORY DATA: His white cell count is at 13.5, hemoglobin 13.4, platelets 169 with 76% neutrophils. Sodium 137, creatinine 0.8. AST 100, albumin 3.1. Cultures from the abscess yesterday yielded Staph aureus. Blood cultures are negative thus far. Susceptibilities of the Staph aureus are pending. ASSESSMENT AND DISCUSSION: Gastric bypass history, marked weight loss, acute onset of folliculitis with pubic and scrotal skin area abscesses due to Staphylococcus aureus, probably more virulent strain. Now, he has this lung findings with evidence of bronchitis and wheezing and this could reflect acute on chronic bronchitis and bronchospasm. The possibility of bronchiectasis and mycobacterial infection is considered as well. We will submit sputums and repeat the CT of chest. We will consult General Surgery for the perineal abscesses. Job ID: [id number]
[2018-06-15] MEDS: Morphine 2 MG/ML SYRINGE SLOW IVP PRN ×2 (16:05→20:23)
--- NOTE | 2018-06-15 16:45 | CT ---
HISTORY: Chronic cough. History of asbestos exposure. Noncontrast enhanced CT images of the chest performed. Coronal reconstructed images performed. Minimal areas of coronary artery calcifications seen. The patient has had previous cholecystectomy as well as gastric surgical repair. Mid pole right renal calculus is seen. No evidence of lung parenchymal interstitial changes seen. A small area of lung parenchymal scarring seen in the lateral aspect of the left lower lobe. No evidence of calcified pleural plaque seen to perez ggest asbestos exposure. Minimal areas of scarring also seen in the posterior aspect of the right lo wer lobe. No significant evidence of lymphadenopathy seen. IMPRESSION: Mild bibasilar areas of lung parenchymal scarring. No significant increased interstitial markings see n. No evidence of pleural calcifications seen. POS: H
[2018-06-16] MEDS: Lorazepam 1 MG TAB PO PRN (00:40)
[2018-06-16] MEDS: Sodium Chloride 0.9% 1,000 ML IV SCH ×2 (00:40→17:11)
[2018-06-16] MEDS: diphenhydrAMINE 25 MG CAP PO PRN (00:40)
[2018-06-16] MEDS: Morphine 2 MG/ML SYRINGE SLOW IVP PRN ×2 (00:51→17:52)
[2018-06-16] MEDS: Vancomycin HCl 1 GM in Premix Bag 1 BAG IVPB SCH ×2 (01:06→08:47)
[2018-06-16] MEDS: cefTRIAXone\\ROCEPHIN 1 GM in Sodium Chloride 0.9% 100 ML IVPB SCH (01:06)
[2018-06-16] MEDS: HYDROcodone/Acetaminophen 10/325 mg Tablet PO PRN ×4 (06:02→20:23)
[2018-06-16] MEDS: Levothyroxine Sodium 100 MCG TAB PO SCH (06:03)
[2018-06-16] MEDS: traMADol HCl 50 MG TAB PO SCH ×2 (08:38→20:23)
[2018-06-16] MEDS: Saccharomyces boulardii 250 MG CAP PO SCH (08:38)
[2018-06-16] MEDS: Colchicine 0.6 MG TAB PO SCH (08:38)
[2018-06-16] MEDS: Ferrous Sulfate 325 MG TAB PO SCH (08:38)
[2018-06-16] MEDS: Loratadine 10 MG TAB PO SCH (08:38)
[2018-06-16] MEDS: Triple Antibiotic Ointment 30 GM TUBE TOP SCH ×2 (08:43→21:49)
--- NOTE | 2018-06-16 08:43 | PDOC.PN ---
- Subjective Encounter Start Date: 06/16/18 Encounter Start Time: 11:10 Subjective: Patient with improvement in perineal swelling, still very painful to -: palpation and with movement. No fevers. Some spontaneous drainage of one -: fluid collection on left posterior to scrotum when he sat up. - Objective Resuscitation Status - Order Detail: 06/14/18 01:20 Resuscitation Status Routine Resuscitation Status: FULL: Full Resuscitation MAR Reviewed: Yes Vital Signs & Weight: Vital Signs (12 hours) Temp Pulse Resp BP Pulse Ox 06/16/18 07:26 98.6 F 74 20 118/78 97 Weight Admit Weight 165 lb 11.2 oz Weight 165 lb 11.2 oz I&O: 06/15/18 06/16/18 06/17/18 06:59 06:59 06:59 Intake Total 1934 1110 Balance 1934 1110 Result Diagrams: 06/15/18 05:57 06/15/18 05:57 Phys Exam - Physical Examination Constitutional: NAD HEENT: moist MMs Respiratory: no wheezing, no rales, no rhonchi Cardiovascular: RRR, no significant murmur Gastrointestinal: soft, non-tender, positive bowel sounds Psychiatric: normal affect, A&O x 3 Deviation from normal: multiple abscesses bilateral inguinal and perineal areas Dx/Plan (1) Abscess or cellulitis of perineum Code(s): HMF3313 - Status: Acute Comment: MSSA, on IV abx, Dr. Bey following, surgery consulted (2) Sepsis Code(s): A41.9 - SEPSIS, UNSPECIFIED ORGANISM Status: Acute (3) Hypogonadism Code(s): SYD8296 - Status: Chronic Comment: On testosterone at home (4) Hypothyroid Code(s): E03.9 - HYPOTHYROIDISM, UNSPECIFIED Status: Chronic Comment: on Synthyroid (5) Bronchitis Code(s): J40 - BRONCHITIS, NOT SPECIFIED ACUTE OR CHRONIC Status: Acute Comment: some scarring on CT chest, no evidence TB or bronchiectasis - Plan cont current plan of care, continue antibiotics * . - Discharge Day Encounter end time: 11:20
[2018-06-16] MEDS ORDERED: Guaifenesin DM 100-10/5 ML UDCUP PO PRN (08:46)
[2018-06-16 11:01] LABS: Vancomycin, Trough 34.5 ug/mL
[2018-06-16] MEDS: Lidocaine 4% Topical Sol 50 ML BOT TOP SCH ×2 (14:24→21:49)
--- NOTE | 2018-06-16 17:10 | PRG ---
DATE OF SERVICE: 06/16/2018 SUBJECTIVE: Some of the abscesses are decreasing in size. There is an element in the right side of his scrotum towards the groin where there is persistence of enlargement and tenderness and also the posterior perineal area is more indurated. He is coughing intermittently, but no chest pain, no abdominal pain and his temperature is normal. Lungs are with expiratory wheezing intermittently. S1-S2 regular rate. Abdomen is soft, not distended. Most of the abscesses are decreasing in size. The posterior peritoneal fold is still indurated and there is this right side of the scrotum with cord like structure to be part of the vas deferens going towards the inguinal canal. LABORATORY DATA: White cell count is 13.5, hemoglobin 13.4, platelets 169 that is from yesterday. Microbiology with Staphylococcus aureus which is susceptible to oxacillin. CT of chest did not show any bronchiectasis or other infiltrates, just minor findings at the bases. ASSESSMENT AND DISCUSSION: 1. Gastric bypass history. 2. Marked weight loss. 3. Folliculitis with skin abscesses around the perineal area, pubic area, scrotal skin due to methicillin-sensitive Staphylococcus aureus. The patient has a surgical consult pending to see if he will need surgical I and D of some of those. Continue with Rocephin alone. Discontinue vancomycin. He probably needs to start with inhaler since I believe he has hyperreactive airway syndrome. Job ID: [id number]
--- NOTE | 2018-06-16 20:03 | CON ---
DATE OF CONSULTATION: 06/16/2018 CHIEF COMPLAINT: Perineal infection. HISTORY OF PRESENT ILLNESS: Mr. Abarca is a 57-year-old male, I have been consulted for perineal infection. History of quite a lot of swelling which started on an airplane late last week. Presented to the emergency department with high pulse rate and febrile. He was complaining of two superficial left skin abscesses which he drained by himself prior to presentation. He has been on vancomycin in the hospital. Since then, a lot of the swelling has improved; however, he has got persistent severe pain along his right groin going down into the right side of his scrotum and very, very tender to touch in the infra-scrotal area of the perineum. He is hemodynamically stable now, non-febrile. No signs of ongoing sepsis. PAST MEDICAL HISTORY: Nesidioblastosis, history of morbid obesity, status post gastric bypass, hypothyroidism, hypogonadism, history of pulmonary embolisms, gout, chronic pain. SURGICAL HISTORY: Cholecystectomy, abdominoplasty and skin removal, gastric bypass, vasectomy, hernia repair, partial thyroidectomy. ALLERGIES: HE IS ALLERGIC TO NSAIDS. MEDICINES: At home: 1. Neligh. 2. Lorazepam. 3. Zyrtec. 4. Colchicine. 5. Benadryl. 6. Ferrous sulfate. 7. Synthroid. 8. Tramadol. SOCIAL HISTORY: Lives at home. . No smoking, alcohol or other drugs. FAMILY HISTORY: Noncontributory. REVIEW OF SYSTEMS: 10-system review of systems otherwise negative unless described above. PHYSICAL EXAMINATION: VITAL SIGNS: Pulse 74, respirations 20, temperature 98.6, blood pressure 118/78. HEENT: Sclerae anicteric, oropharynx clear. NECK: No lymphadenopathy. CHEST: Clear. HEART: Regular rate and rhythm. ABDOMEN: Soft, nontender. Well-healed incisions without hernia. Examination of his perineum reveals there to be a small skin defect with a small amount of necrotic skin in the left groin. There was a second area of skin breakdown along the left perineal fold going down towards the anus. There was no diffuse necrotic tissue. There was no crepitus. There is no bulla formation. The right side of the scrotum is very point tender going up towards the right groin. There is no obvious perirectal abscess. CT of the pelvis on 06/14 was negative. Ultrasound of the testicle showed good flow without obvious testicular pathology. ASSESSMENT: 1. Cellulitis of perineum with persistent induration, rule out underlying fluid collection or abscess. 2. Severe pain in right scrotum, but negative testicular ultrasound. PLAN: I would perform local exploration of these skin wounds in the operating room to make sure they do not tunnel to fluid collection. I can do that in the morning. I have discussed with Dr. Ministerio Terrazas. He is going to see him in the morning as well to make sure nothing else needs to be done in the right scrotum. Job ID: [id number]
[2018-06-16 20:57] LABS: Vancomycin, Trough 10.9 ug/mL
[2018-06-17] MEDS ORDERED: Dextrose 5% in Water 1,000 ML IV PRN (00:18)
[2018-06-17] MEDS ORDERED: Dextrose 50% Abboject 50 ML SYRINGE SLOW IVP PRN (00:18)
[2018-06-17] MEDS: Morphine 2 MG/ML SYRINGE SLOW IVP PRN (00:21)
[2018-06-17] MEDS: Lorazepam 1 MG TAB PO PRN (00:21)
[2018-06-17] MEDS: diphenhydrAMINE 25 MG CAP PO PRN (00:56)
[2018-06-17] MEDS: cefTRIAXone\\ROCEPHIN 1 GM in Sodium Chloride 0.9% 100 ML IVPB SCH (00:56)
[2018-06-17] MEDS: HYDROcodone/Acetaminophen 10/325 mg Tablet PO PRN (06:27)
[2018-06-17] MEDS: Levothyroxine Sodium 100 MCG TAB PO SCH (06:27)
[2018-06-17] MEDS: traMADol HCl 50 MG TAB PO SCH (09:52)
[2018-06-17] MEDS: Ferrous Sulfate 325 MG TAB PO SCH (09:53)
[2018-06-17] MEDS: Saccharomyces boulardii 250 MG CAP PO SCH (09:53)
[2018-06-17] MEDS: Loratadine 10 MG TAB PO SCH (09:53)
[2018-06-17] MEDS: Colchicine 0.6 MG TAB PO SCH (09:53)
[2018-06-17] MEDS: Lidocaine 4% Topical Sol 50 ML BOT TOP SCH ×2 (09:53→20:06)
[2018-06-17] MEDS: Triple Antibiotic Ointment 30 GM TUBE TOP SCH ×2 (09:54→20:06)
[2018-06-17 10:23] LABS: Bilirubin Negative (Negative); Blood, Urine Negative (Negative); Clarity CLEAR (Clear); Glucose, Urine (Dipstick) Negative (Negative); Leukocyte Negative (Negative); Nitrite Negative (Negative); Protein, Urine (Dipstick) Negative (Neg-Trace); Urobilinogen 0.2 mg/dL (0.2-1.0)
[2018-06-17 10:25] LABS: Bacteria/HPF None Seen HPF (None Seen); Hyaline Casts/LPF 0-3 HYALINE CAST LPF (0-3 Hyaline); RBC/HPF 0-3 HPF (0-3); Squamous Epithelial 0-3 HPF (0-3); WBC/HPF 0-3 HPF (0-3)
[2018-06-17 10:33] LABS: Urine Culture Reflex No No
[2018-06-17] MEDS ORDERED: Sodium Chloride 0.9% 10 ML ONE ×2 (11:44→11:50)
[2018-06-17] MEDS: Sodium Chloride 0.9% 1,000 ML IV SCH (12:33)
[2018-06-17] MEDS ORDERED: Lidocaine 1% PF 5 ML VIAL ONE (13:48)
[2018-06-17] MEDS ORDERED: PROPOFOL 200 MG/20 ML VIAL ONE (13:48)
[2018-06-17] MEDS ORDERED: Fentanyl 100 MCG/2 ML VIAL ONE ×4 (14:06→17:18)
[2018-06-17] MEDS ORDERED: Promethazine HCl 25 MG/ML VIAL IM PRN ×2 (15:06→15:32)
[2018-06-17] MEDS ORDERED: Ondansetron PF 4 MG/2 ML Vial IVP PRN (15:06)
[2018-06-17] MEDS ORDERED: diphenhydrAMINE 50 MG/ML VIAL IVP PRN (15:06)
[2018-06-17] MEDS ORDERED: diphenhydrAMINE 25 MG CAP PO PRN (15:06)
[2018-06-17] MEDS ORDERED: Naloxone HCl 0.4 mg/ml Vial IV PRN (15:06)
[2018-06-17] MEDS ORDERED: diphenhydrAMINE 50 MG/ML VIAL IM PRN (15:06)
[2018-06-17] MEDS ORDERED: Zolpidem Tartrate 5 MG TAB PO PRN (15:06)
[2018-06-17] MEDS ORDERED: Communication Order-Pharmacy FS SCH (15:15)
[2018-06-17] MEDS ORDERED: Ondansetron HCl/PF 4 MG/2 ML Vial IVP PRN (15:32)
[2018-06-17] MEDS ORDERED: Meperidine HCl/PF 25 MG/ML VIAL SLOW IVP PRN (15:32)
[2018-06-17] MEDS ORDERED: Promethazine HCl 25 MG/ML VIAL SLOW IVP PRN (15:32)
[2018-06-17] MEDS ORDERED: Morphine Sulfate 2 MG/ML SYRINGE SLOW IVP PRN (15:32)
[2018-06-17] MEDS ORDERED: Ketorolac Tromethamine 30 MG/ML VIAL IVP PRN (15:32)
[2018-06-17] MEDS ORDERED: HYDROmorphone 2 MG/ML VIAL SLOW IVP PRN (15:32)
[2018-06-17] MEDS ORDERED: Morphine 4 MG/ML VIAL ONE (15:47)
[2018-06-17] MEDS ORDERED: Morphine 2 MG/ML SYRINGE ONE (16:04)
[2018-06-17] MEDS ORDERED: HYDROmorphone 2 MG/ML VIAL ONE (16:08)
--- NOTE | 2018-06-17 19:20 | PDOC.PN ---
- Subjective Encounter Start Date: 06/17/18 Encounter Start Time: 19:00 Subjective: f/u for scrotal/inguinal cellulitis/abscess with staph spp on -: Rocephin and s/p I&D today. Pain in groin and scrotum on CONGRESSIONAL REPRESENTATIVE -: pump with Fentanyl. - Objective Resuscitation Status - Order Detail: 06/14/18 01:20 Resuscitation Status Routine Resuscitation Status: FULL: Full Resuscitation MAR Reviewed: Yes Vital Signs & Weight: Vital Signs (12 hours) Temp Pulse Resp BP Pulse Ox 06/17/18 18:00 97.2 F L 73 16 116/83 96 06/17/18 07:38 99.0 F 67 18 111/76 94 L Weight Admit Weight 165 lb 11.2 oz Weight 165 lb 11.2 oz I&O: 06/16/18 06/17/18 06/18/18 06:59 06:59 06:59 Intake Total 1110 1370 Balance 1110 1370 Result Diagrams: 06/15/18 05:57 06/15/18 05:57 Additional Labs: Accuchecks 06/17/18 06/17/18 06/17/18 15:36 06:24 00:01 POC Glucose 86 75 68 L Microbiology 06/14/18 16:08 Scrotum - Abscess Bacterial Culture - Final Staphylococcus aureus 06/16/18 19:05 Sputum Respiratory Culture - Preliminary Yeast species 06/14/18 04:20 Venous blood - Right Arm Blood Culture - Preliminary NO GROWTH AT 48 HOURS 06/14/18 04:20 Venous blood - Left Arm Blood Culture - Preliminary NO GROWTH AT 48 HOURS Laboratory Tests 06/13/18 06/14/18 06/16/18 17:33 04:20 20:32 WBC 23.5 H 18.2 H Vancomycin Trough 10.9 Phys Exam - Physical Examination Constitutional: NAD HEENT: PERRLA, sclera anicteric, oral pharynx no lesions Neck: no nodes, no JVD, supple, full ROM Respiratory: no wheezing, no rales, no rhonchi, clear to auscultation bilateral S1, S2 Cardiovascular: RRR, no significant murmur, no rub, gallop Gastrointestinal: soft, non-tender, no distention, positive bowel sounds Musculoskeletal: no edema, pulses present Neurological: normal sensation, moves all 4 limbs Psychiatric: A&O x 3 Skin: normal turgor, cap refill <2 seconds Deviation from normal: Wound dressing in place in scrotum, Campos catheter in place Dx/Plan (1) Abscess or cellulitis of perineum Code(s): [id number] - Status: Acute Comment: MSSA on Rocephin, s/p I&D 06/17/18 , pain control with Fentanyl CONGRESSIONAL REPRESENTATIVE (2) Sepsis Code(s): A41.9 - SEPSIS, UNSPECIFIED ORGANISM Status: Acute Comment: Secondary to #1, resolving (3) Neutrophilic leukocytosis Code(s): D72.9 - DISORDER OF WHITE BLOOD CELLS, UNSPECIFIED Status: Acute Comment: Improved with IV abx, I&D (4) Hypothyroid Code(s): E03.9 - HYPOTHYROIDISM, UNSPECIFIED Status: Chronic Comment: Continue Levothyroxine 100mcg daily - Plan plan discussed w/ family, continue antibiotics, 

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
--- NOTE | 2018-06-17 22:59 | OP ---
DATE OF PROCEDURE: 06/17/2018 PREOPERATIVE DIAGNOSIS: Right scrotal abscess. POSTOPERATIVE DIAGNOSIS: Right scrotal abscess. PROCEDURE PERFORMED: I and D of right scrotal abscess. WANT AD RECEIVER: Dr. Mijares. ANESTHESIA: General. ESTIMATED BLOOD LOSS: For this part probably around 50 mL. DRAINS PLACED: A 16-Gu[place] Campos catheter. DESCRIPTION OF PROCEDURE: After obtaining written and verbal consent from the patient, he was taken to the operating suite. He was placed in supine position on the OR table. PlexiPulse was placed on his lower extremities and turned on. He was given a general anesthetic and oral intubation. He was placed in the modified dorsal lithotomy position. He was sterilely prepped and draped with Betadine. A Campos catheter was then sterilely inserted and the catheter was clamped and be held up out of the way. Dr. Mijares and I worked together. Dr. Mijares initially opened up the left inguinal region and found pus to be present in that region, made a bigger hole and it was tracking down the left scrotum down towards the perineum and to the left of the perirectal region. There is some thick pus in this region. I opened the area of the right hemiscrotum where had softened and there was pus in this region too and this connected down along the right side of the scrotum down to the perineum, so this was probably all one communicating area of infection. This was all opened up by myself on the right scrotal region and loculations broken down and with Dr. Mijares doing the same thing on the left side and perineum. All was irrigated out thoroughly with some saline. 2-inch drains were placed for packing wet-to-dry after good hemostasis was obtained. ABD pads and webbed underwear were then placed. The Campos catheter was left in and probably easier to have it in for a couple of days. It was hooked up back up to a drainage bag. He was taken out of the dorsal lithotomy position. He was awakened and extubated and taken by stretcher to the recovery room. Job ID: [id number]
[2018-06-18] MEDS: cefTRIAXone\\ROCEPHIN 1 GM in Sodium Chloride 0.9% 100 ML IVPB SCH (00:53)
[2018-06-18 02:01] LABS: Band 9 % (5-11); Eosinophils 3 % (0-10); Hemoglobin 13.7 g/dL (14.0-18.0); Lymphocytes 17 % (21-51); MDiff Complete? YES; Mean Corpuscular HGB CONC 32.3 g/dL (32.0-36.0); Mean Corpuscular Hemoglobin 31.4 pg (27.0-31.0); Mean Corpuscular Volume 97.3 fL (78.0-98.0); Mean Platelet Volume 7.1 fL (7.4-10.4); Monocytes 8 % (0-10); Neutrophil 62 % (42-75); Platelet Count 255 thou/uL (130-400); Platelet Morphology Comment Appears Adequate; RBC Distribution Width 12.2 % (11.5-14.5); Reactive Lymphocytes 1 % (0-10); Red Blood Cell (RBC) Count 4.38 mill/uL (4.70-6.10); White Blood Cell (WBC) Count 10.3 thou/uL (4.8-10.8)
[2018-06-18 02:02] LABS: Anion Gap 11 mmol/L (10-20); BUN (Urea Nitrogen) 5 mg/dL (8.4-25.7); Calc. Creatinine Clearance 102 mL/min (70-130); Calcium 8.4 mg/dL (7.8-10.44); Carbon Dioxide 30 mmol/L (22-29); Chloride 102 mmol/L (98-107); Estimated GFR-MDRD Greater than 90; Glucose 130 mg/dL (70-105); Potassium 3.7 mmol/L (3.5-5.1); Sodium 139 mmol/L (136-145)
[2018-06-18] MEDS: diphenhydrAMINE 25 MG CAP PO PRN (02:37)
[2018-06-18] MEDS ORDERED: Acetaminophen 1,000 MG in Premix Bag 1 BAG IVPB SCH (02:45)
[2018-06-18] MEDS: Levothyroxine Sodium 100 MCG TAB PO SCH (06:27)
[2018-06-18] MEDS: Sodium Chloride 0.9% 1,000 ML IV SCH (08:21)
[2018-06-18] MEDS: Saccharomyces boulardii 250 MG CAP PO SCH (08:22)
[2018-06-18] MEDS: Ferrous Sulfate 325 MG TAB PO SCH (08:22)
[2018-06-18] MEDS: Loratadine 10 MG TAB PO SCH (08:22)
[2018-06-18] MEDS: Colchicine 0.6 MG TAB PO SCH (08:22)
[2018-06-18] MEDS: Lidocaine 4% Topical Sol 50 ML BOT TOP SCH ×2 (08:35→20:27)
[2018-06-18] MEDS: Triple Antibiotic Ointment 30 GM TUBE TOP SCH ×2 (08:35→20:28)
--- NOTE | 2018-06-18 10:49 | OP ---
DATE OF PROCEDURE: 06/17/2018 PREOPERATIVE DIAGNOSIS: Perineal abscess, multiple. POSTOPERATIVE DIAGNOSIS: Perineal abscess, multiple. PROCEDURE PERFORMED: Incision and drainage of perineal abscess, multiple. FINANCIAL SERVICES AUDITOR: Ministerio Terrazas MD ANESTHESIA: General. ESTIMATED BLOOD LOSS: Minimal. COMPLICATIONS: None. FINDINGS: Significant purulences in a horseshoe-shaped abscess going from left groin down to the perineum and up the right scrotum. DESCRIPTION OF PROCEDURE: The patient was taken to the operating room and laid supine on the operating room table. After general anesthetic was obtained, the perineum and perirectal area were prepped and draped in a sterile fashion and Dr. Terrazas placed the Campos. He performed incision and drainage of right scrotal abscess. There were 3 other small openings made in order to drain this large horseshoe-shaped abscess. All loculations were broken up. The wounds were irrigated and packed using iodoform gauze. The patient was sent to Recovery in stable condition. All instrument counts, needle counts, and lap counts were correct. Job ID: [id number]
[2018-06-18] MEDS: fentaNYL Citrate/PF 2,000 MCG in Sodium Chloride 0.9% 60 ML IV PRN (10:50)
--- NOTE | 2018-06-18 15:22 | PDOC.PN ---
- Subjective Encounter Start Date: 06/18/18 Encounter Start Time: 15:15 Subjective: f/u for perineal abscess s/p I &D POD#1 with staph spp on Rocephin -: and Fentanyl MISSING PERSONS INVESTIGATOR. Pain better controlled currently and resting better. - Objective Resuscitation Status - Order Detail: 06/14/18 01:20 Resuscitation Status Routine Resuscitation Status: FULL: Full Resuscitation MAR Reviewed: Yes Vital Signs & Weight: Vital Signs (12 hours) Temp Pulse Resp BP Pulse Ox 06/18/18 08:03 98.5 F 60 16 126/73 95 06/18/18 04:44 98.6 F 60 18 114/76 95 Weight Admit Weight 165 lb 11.2 oz Weight 165 lb 11.2 oz I&O: 06/17/18 06/18/18 06/19/18 06:59 06:59 06:59 Intake Total 1370 2000 Output Total 2250 Balance 1370 -250 Result Diagrams: 06/18/18 01:33 06/18/18 01:33 Additional Labs: Accuchecks 06/18/18 06/18/18 06/17/18 11:23 04:30 20:10 POC Glucose 105 81 82 06/17/18 15:36 POC Glucose 86 Microbiology 06/14/18 16:08 Scrotum - Abscess Bacterial Culture - Final Staphylococcus aureus 06/16/18 19:05 Sputum Respiratory Culture - Preliminary Yeast species 06/14/18 04:20 Venous blood - Right Arm Blood Culture - Preliminary NO GROWTH AT 48 HOURS 06/14/18 04:20 Venous blood - Left Arm Blood Culture - Preliminary NO GROWTH AT 48 HOURS Laboratory Tests 06/13/18 06/14/18 06/16/18 17:33 04:20 20:32 WBC 23.5 H 18.2 H Vancomycin Trough 10.9 Phys Exam - Physical Examination Constitutional: NAD HEENT: PERRLA, sclera anicteric, oral pharynx no lesions Neck: no nodes, no JVD, supple, full ROM Respiratory: no wheezing, no rales, no rhonchi, clear to auscultation bilateral S1, S2 Cardiovascular: RRR, no significant murmur, no rub, gallop Gastrointestinal: soft, non-tender, no distention, positive bowel sounds Musculoskeletal: no edema, pulses present Neurological: normal sensation, moves all 4 limbs Psychiatric: A&O x 3 Deviation from normal: Wound dressing in place in groin, Campos in place Skin: cap refill <2 seconds Dx/Plan (1) Abscess or cellulitis of perineum Code(s): [id number] - Status: Acute Comment: MSSA on Rocephin 1gm IV daily, s/ p I&D 06/17/18, pain control with Fentanyl MISSING PERSONS INVESTIGATOR, WCT team for local care (2) Sepsis Code(s): A41.9 - SEPSIS, UNSPECIFIED ORGANISM Status: Acute Comment: Secondary to #1, resolving (3) Neutrophilic leukocytosis Code(s): D72.9 - DISORDER OF WHITE BLOOD CELLS, UNSPECIFIED Status: Acute Comment: Improved with IV abx, I&D (4) Hypothyroid Code(s): E03.9 - HYPOTHYROIDISM, UNSPECIFIED Status: Chronic Comment: Continue Levothyroxine 100mcg daily - Plan plan discussed w/ family, 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
[2018-06-19] MEDS: diphenhydrAMINE 25 MG CAP PO PRN (01:24)
[2018-06-19] MEDS: cefTRIAXone\\ROCEPHIN 1 GM in Sodium Chloride 0.9% 100 ML IVPB SCH (01:25)
[2018-06-19] MEDS: fentaNYL Citrate/PF 2,000 MCG in Sodium Chloride 0.9% 60 ML IV PRN ×2 (02:23→19:14)
[2018-06-19] MEDS: Sodium Chloride 0.9% 1,000 ML IV SCH (05:15)
[2018-06-19] MEDS: Levothyroxine Sodium 100 MCG TAB PO SCH (05:18)
[2018-06-19] MEDS: Ferrous Sulfate 325 MG TAB PO SCH (09:52)
[2018-06-19] MEDS: Saccharomyces boulardii 250 MG CAP PO SCH (09:52)
[2018-06-19] MEDS: Loratadine 10 MG TAB PO SCH (09:53)
[2018-06-19] MEDS: Colchicine 0.6 MG TAB PO SCH (09:54)
[2018-06-19] MEDS: Lidocaine 4% Topical Sol 50 ML BOT TOP SCH ×2 (09:56→20:11)
[2018-06-19] MEDS: Triple Antibiotic Ointment 30 GM TUBE TOP SCH ×2 (09:58→20:11)
--- NOTE | 2018-06-19 11:53 | PDOC.PN ---
- Subjective Encounter Start Date: 06/19/18 Encounter Start Time: 11:45 Subjective: f/u for perineal/scrotal abscess s/p I&D POD #2 receiving local WCT -: and Rocephin. Remains on Fentanyl BENZENE STILL UTILITY OPERATOR with some overall improvement -: in pain control. + BM last pm. Appetite ok. - Objective Resuscitation Status - Order Detail: 06/14/18 01:20 Resuscitation Status Routine Resuscitation Status: FULL: Full Resuscitation MAR Reviewed: Yes Vital Signs & Weight: Vital Signs (12 hours) Temp Pulse Resp BP Pulse Ox 06/19/18 08:00 98.5 F 57 L 18 135/79 95 06/19/18 04:20 97.6 F 60 18 126/81 97 Weight Admit Weight 165 lb 11.2 oz Weight 165 lb 11.2 oz I&O: 06/18/18 06/19/18 06/20/18 06:59 06:59 06:59 Intake Total 1999 2380 Output Total 2250 3300 Balance -250 -920 Result Diagrams: 06/18/18 01:33 06/18/18 01:33 Additional Labs: Accuchecks 06/19/18 06/18/18 06/18/18 05:19 20:27 16:42 POC Glucose 86 98 92 06/16/18 23:57 POC Glucose 52 L* Microbiology 06/14/18 16:08 Scrotum - Abscess Bacterial Culture - Final Staphylococcus aureus 06/16/18 19:05 Sputum Respiratory Culture - Preliminary Yeast species 06/14/18 04:20 Venous blood - Right Arm Blood Culture - Preliminary NO GROWTH AT 48 HOURS 06/14/18 04:20 Venous blood - Left Arm Blood Culture - Preliminary NO GROWTH AT 48 HOURS Laboratory Tests 06/13/18 06/14/18 06/16/18 17:33 04:20 20:32 WBC 23.5 H 18.2 H Vancomycin Trough 10.9 Phys Exam - Physical Examination Constitutional: NAD HEENT: PERRLA, sclera anicteric, oral pharynx no lesions Neck: no nodes, no JVD, supple, full ROM Respiratory: no wheezing, no rales, no rhonchi, clear to auscultation bilateral S1, S2 Cardiovascular: RRR, no significant murmur, no rub, gallop Gastrointestinal: soft, non-tender, no distention, positive bowel sounds Musculoskeletal: pulses present Neurological: normal sensation, moves all 4 limbs Psychiatric: A&O x 3 Skin: normal turgor, cap refill <2 seconds Deviation from normal: Campos in place, wound dressings in place in groin Dx/Plan (1) Abscess or cellulitis of perineum Code(s): [id number] - Status: Acute Comment: MSSA on Rocephin 1gm IV daily, s/ p I&D 06/17/18, pain control with Fentanyl BENZENE STILL UTILITY OPERATOR, WCT team for local care (2) Sepsis Code(s): A41.9 - SEPSIS, UNSPECIFIED ORGANISM Status: Acute Comment: Secondary to #1, resolving (3) Neutrophilic leukocytosis Code(s): D72.9 - DISORDER OF WHITE BLOOD CELLS, UNSPECIFIED Status: Acute Comment: Improved with IV abx, s/p I&D, resolving (4) Hypothyroid Code(s): E03.9 - HYPOTHYROIDISM, UNSPECIFIED Status: Chronic Comment: Continue Levothyroxine 100mcg daily - Plan continue antibiotics, social economist, out of bed/ambulate Stable currently -: Continue Rocephin IV daily -: OOB/ambulate -: WCT for wound packing changes -: Campos likely out in 24h * Wean off Fentanyl BENZENE STILL UTILITY OPERATOR
--- NOTE | 2018-06-19 17:14 | PRG ---
DATE OF SERVICE: 06/19/2018 SUBJECTIVE: The patient had surgical I and D by Dr. Mijares and Dr. Terrazas. He did have scrotal abscess, which was I and D'd plus the perineal once and he is still having this neuralgic pain in the right side of the scrotal tissue and groin region. Otherwise, he is feeling better. No respiratory symptoms or abdominal pain. No diarrhea. OBJECTIVE: VITAL SIGNS: Showed normal temperature. LUNGS: Clear. HEART: S1 and S2, regular rate. ABDOMEN: Soft. Not distended. The areas of I and D are markedly improved. LABORATORY DATA: White cell count is at 10.3, hemoglobin 13.7, platelets 255, with 62% neutrophils, 9% bands, and creatinine 0.83. Urinalysis essentially normal. The cultures from the abscess with Staph aureus, which is methicillin sensitive. These sputum cultures are indicative of Melonie albicans, which is colonizer, but not pathogen, acid-fast negative. ASSESSMENT AND DISCUSSION: Perineal abscesses and scrotal abscess, status post I and D. This is secondary to methicillin-resistant Staphylococcus aureus and likely precipitated by new colonization event followed by the contributing factor of his habit of shaving the area. The respiratory issues are probably related to hyperreactive airway syndrome. From here on, I think eventually able to be transitioned to oral Keflex 500 mg four times daily for another 10 days approximately for discharge planning. The patient will be at risk for recrudescence of this same phenomenon since usually chronic colonization is might be a problem in this situation. May want to try doxycycline with rifampin or initially just right topical decolonization with Hibiclens and nasal mupirocin, 1 week out of the month for three consecutive months. Job ID: [id number]
[2018-06-20] MEDS: cefTRIAXone\\ROCEPHIN 1 GM in Sodium Chloride 0.9% 100 ML IVPB SCH (01:27)
[2018-06-20] MEDS: Sodium Chloride 0.9% 1,000 ML IV SCH (01:27)
[2018-06-20] MEDS: Levothyroxine Sodium 100 MCG TAB PO SCH (06:10)
[2018-06-20] MEDS: Triple Antibiotic Ointment 30 GM TUBE TOP SCH ×2 (08:56→19:49)
[2018-06-20] MEDS: Colchicine 0.6 MG TAB PO SCH (08:56)
[2018-06-20] MEDS: Lidocaine 4% Topical Sol 50 ML BOT TOP SCH ×2 (08:56→19:49)
[2018-06-20] MEDS: Saccharomyces boulardii 250 MG CAP PO SCH (08:58)
[2018-06-20] MEDS: Loratadine 10 MG TAB PO SCH (08:58)
[2018-06-20] MEDS: Ferrous Sulfate 325 MG TAB PO SCH (08:58)
[2018-06-20] MEDS ORDERED: HYDROcodone/Acetaminophen 10/325 mg Tablet PO PRN ×3 (11:18→16:04)
[2018-06-20] MEDS ORDERED: Sodium Chloride 0.9% 1,000 ML IV SCH (12:07)
--- NOTE | 2018-06-20 12:07 | PDOC.GSPN ---
Surgery Progress Note: Subj - Subjective Narrative: Campos out able to void. Still having fairly severe pain right scrotum. Surgery Progress Note: Obj - Vital signs Vital signs: Vital Signs - Most Recent Temp Pulse Resp BP Pulse Ox 98.6 F 65 20 144/81 H 98 06/20/18 11:15 06/20/18 11:15 06/20/18 11:15 06/20/18 11:15 06/20/18 11:15 - Physical Exam General: no distress Wound: packing in place Surgery Progress Note: Results - Labs Result Diagrams: 06/18/18 01:33 06/18/18 01:33 Lab results: Laboratory Results - last 24 hr 06/20/18 06/20/18 04:34 11:19 POC Glucose 127 H 84 Surgery Progress Note: A/P - Problem (1) Abscess or cellulitis of perineum Current Visit: Yes Code(s): [id number] - Status: Acute - Plan Plan: s/p I&D -still needs side sawyer -likely needs inpatient pain control and wound care through weekend. -Dr. Mata covering for me this weekend
[2018-06-20] MEDS: Fentanyl 100 MCG/2 ML VIAL SLOW IVP PRN ×2 (14:45→15:26)
[2018-06-20] MEDS ORDERED: traMADol HCl 50 MG TAB PO PRN ×2 (14:50→14:51)
--- NOTE | 2018-06-20 16:08 | PDOC.PN ---
- Subjective Encounter Start Date: 06/20/18 Encounter Start Time: 16:00 Subjective: f/u for perineal abscess s/p I&D POD #3 on Rocephin IV. TENDER LABOR pump -: d/c'd today and nursing reports increased pain and requirements for -: po pain meds. Appetite good. Voiding urine ok. - Objective Resuscitation Status - Order Detail: 06/14/18 01:20 Resuscitation Status Routine Resuscitation Status: FULL: Full Resuscitation MAR Reviewed: Yes Vital Signs & Weight: Vital Signs (12 hours) Temp Pulse Resp BP Pulse Ox 06/20/18 11:15 98.6 F 65 20 144/81 H 98 06/20/18 08:00 96 06/20/18 07:47 98.1 F 53 L 18 145/88 H 96 06/20/18 05:30 97.5 F L 57 L 16 145/81 H 93 L Weight Admit Weight 165 lb 11.2 oz Weight 165 lb 11.2 oz I&O: 06/19/18 06/20/18 06/21/18 06:59 06:59 06:59 Intake Total 2380 1430 Output Total 3300 2080 Balance -920 -650 Result Diagrams: 06/18/18 01:33 06/18/18 01:33 Additional Labs: Accuchecks 06/20/18 06/20/18 06/19/18 11:19 04:34 20:05 POC Glucose 84 127 H 83 06/19/18 17:00 POC Glucose 88 Microbiology 06/14/18 16:08 Scrotum - Abscess Bacterial Culture - Final Staphylococcus aureus 06/16/18 19:05 Sputum Respiratory Culture - Preliminary Yeast species 06/14/18 04:20 Venous blood - Right Arm Blood Culture - Preliminary NO GROWTH AT 48 HOURS 06/14/18 04:20 Venous blood - Left Arm Blood Culture - Preliminary NO GROWTH AT 48 HOURS Laboratory Tests 06/13/18 06/14/18 06/16/18 17:33 04:20 20:32 WBC 23.5 H 18.2 H Vancomycin Trough 10.9 Phys Exam - Physical Examination Constitutional: NAD HEENT: PERRLA, sclera anicteric, oral pharynx no lesions Neck: no nodes, no JVD, supple, full ROM Respiratory: no wheezing, no rales, no rhonchi, clear to auscultation bilateral S1, S2 Cardiovascular: RRR, no significant murmur, no rub, gallop Gastrointestinal: soft, non-tender, no distention, positive bowel sounds Musculoskeletal: pulses present, edema present Neurological: normal sensation, moves all 4 limbs Psychiatric: A&O x 3 Deviation from normal: wound packing in groin/scrotum Skin: normal turgor, cap refill <2 seconds Dx/Plan (1) Abscess or cellulitis of perineum Code(s): [id number] - Status: Acute Comment: MSSA on Rocephin 1gm IV daily, s/ p I&D 06/17/18, d/c'd off Fentanyl TENDER LABOR, WCT team for local care (2) Sepsis Code(s): A41.9 - SEPSIS, UNSPECIFIED ORGANISM Status: Acute Comment: Secondary to #1, resolving (3) Neutrophilic leukocytosis Code(s): D72.9 - DISORDER OF WHITE BLOOD CELLS, UNSPECIFIED Status: Acute Comment: Improved with IV abx, s/p I&D, resolving (4) Hypothyroid Code(s): E03.9 - HYPOTHYROIDISM, UNSPECIFIED Status: Chronic Comment: Continue Levothyroxine 100mcg daily - Plan continue antibiotics, out of bed/ambulate, DVT proph w/SCDs Stable overall -: Continue Rocephin 1gm IV daily -: WCT for local care and packing changes -: [place] 10/325mg po q4h prn pain -: Tramadol prn * Campos d/c'd * OOB/ambulate
[2018-06-20] MEDS: HYDROcodone/Acetaminophen 10/325 mg Tablet PO PRN ×2 (17:52→21:28)
[2018-06-20 20:07] LABS: Fungus Stain Final report (.); Fungus Stain Result 1 Yeast observed (.)
[2018-06-20] MEDS: Morphine 2 MG/ML SYRINGE SLOW IVP PRN (20:52)
[2018-06-21] MEDS: Morphine 2 MG/ML SYRINGE SLOW IVP PRN ×2 (00:30→13:11)
[2018-06-21] MEDS: HYDROcodone/Acetaminophen 10/325 mg Tablet PO PRN ×6 (01:37→21:57)
[2018-06-21] MEDS: cefTRIAXone\\ROCEPHIN 1 GM in Sodium Chloride 0.9% 100 ML IVPB SCH (01:38)
[2018-06-21] MEDS: Levothyroxine Sodium 100 MCG TAB PO SCH (05:23)
[2018-06-21] MEDS: Ferrous Sulfate 325 MG TAB PO SCH (09:21)
[2018-06-21] MEDS: Colchicine 0.6 MG TAB PO SCH (09:21)
[2018-06-21] MEDS: Saccharomyces boulardii 250 MG CAP PO SCH (09:21)
[2018-06-21] MEDS: Loratadine 10 MG TAB PO SCH (09:22)
[2018-06-21] MEDS: Triple Antibiotic Ointment 30 GM TUBE TOP SCH ×2 (14:05→18:52)
[2018-06-21] MEDS: Lidocaine 4% Topical Sol 50 ML BOT TOP SCH ×3 (14:05→18:52)
[2018-06-21] MEDS ORDERED: Lidocaine 1% PF 5 ML VIAL ONE (17:17)
[2018-06-21] MEDS ORDERED: ePHEDrine 50 MG/ML VIAL ONE (17:17)
[2018-06-21] MEDS ORDERED: Dexamethasone 20 MG/5 ML VIAL ONE (17:17)
[2018-06-21] MEDS ORDERED: Ondansetron PF 4 MG/2 ML Vial ONE (17:17)
[2018-06-21] MEDS ORDERED: PROPOFOL 200 MG/20 ML VIAL ONE (17:17)
--- NOTE | 2018-06-21 18:32 | PDOC.PN ---
- Subjective Encounter Start Date: 06/21/18 Encounter Start Time: 18:30 Subjective: f/u for perineal/scrotal abscess s/p I&D POD #4 on Rocephin. Receiving -: WCT for local care and packing changes. Overall pain less. -: Voiding ok. + BM's - Objective Resuscitation Status - Order Detail: 06/14/18 01:20 Resuscitation Status Routine Resuscitation Status: FULL: Full Resuscitation MAR Reviewed: Yes Vital Signs & Weight: Vital Signs (12 hours) Temp Pulse Resp BP Pulse Ox 06/21/18 08:00 98.2 F 65 18 132/66 96 Weight Admit Weight 165 lb 11.2 oz Weight 165 lb 11.2 oz I&O: 06/20/18 06/21/18 06/22/18 06:59 06:59 06:59 Intake Total 1430 1400 200 Output Total 2080 450 Balance -650 1400 -250 Result Diagrams: 06/18/18 01:33 06/18/18 01:33 Additional Labs: Accuchecks 06/21/18 06/20/18 05:04 19:51 POC Glucose 83 122 H Microbiology 06/14/18 16:08 Scrotum - Abscess Bacterial Culture - Final Staphylococcus aureus 06/16/18 19:05 Sputum Respiratory Culture - Preliminary Yeast species 06/14/18 04:20 Venous blood - Right Arm Blood Culture - Preliminary NO GROWTH AT 48 HOURS 06/14/18 04:20 Venous blood - Left Arm Blood Culture - Preliminary NO GROWTH AT 48 HOURS Laboratory Tests 06/13/18 06/14/18 06/16/18 17:33 04:20 20:32 WBC 23.5 H 18.2 H Vancomycin Trough 10.9 Phys Exam - Physical Examination Constitutional: NAD HEENT: PERRLA, sclera anicteric, oral pharynx no lesions Neck: no nodes, no JVD, supple, full ROM Respiratory: no wheezing, no rales, no rhonchi, clear to auscultation bilateral S1, S2 Cardiovascular: RRR, no significant murmur, no rub, gallop Gastrointestinal: soft, non-tender, no distention, positive bowel sounds Musculoskeletal: no edema, pulses present Neurological: normal sensation, moves all 4 limbs Psychiatric: A&O x 3 Deviation from normal: Wound packing in groin Skin: normal turgor, cap refill <2 seconds Dx/Plan (1) Abscess or cellulitis of perineum Code(s): [id number] - Status: Acute Comment: MSSA on Rocephin 1gm IV daily, s/ p I&D 06/17/18, d/c'd off Fentanyl CITY ROUTE DRIVER, WCT team for local care (2) Sepsis Code(s): A41.9 - SEPSIS, UNSPECIFIED ORGANISM Status: Acute Comment: Secondary to #1, resolving (3) Neutrophilic leukocytosis Code(s): D72.9 - DISORDER OF WHITE BLOOD CELLS, UNSPECIFIED Status: Acute Comment: Improved with IV abx, s/p I&D, resolving (4) Hypothyroid Code(s): E03.9 - HYPOTHYROIDISM, UNSPECIFIED Status: Chronic Comment: Continue Levothyroxine 100mcg daily - Plan plan discussed w/ family, continue antibiotics, out of bed/ambulate Stable currently -: Continue Rocephin -: WCT for local care and daily packing changes -: OOB/ambulate -: Pain control * Likely home in 48h
[2018-06-22] MEDS: cefTRIAXone\\ROCEPHIN 1 GM in Sodium Chloride 0.9% 100 ML IVPB SCH (02:21)
[2018-06-22] MEDS: HYDROcodone/Acetaminophen 10/325 mg Tablet PO PRN ×2 (03:18→08:24)
[2018-06-22] MEDS: Levothyroxine Sodium 100 MCG TAB PO SCH (03:19)
[2018-06-22] MEDS: Colchicine 0.6 MG TAB PO SCH (08:20)
[2018-06-22] MEDS: Lidocaine 4% Topical Sol 50 ML BOT TOP SCH ×2 (08:20→19:02)
[2018-06-22] MEDS: Triple Antibiotic Ointment 30 GM TUBE TOP SCH ×2 (08:23→19:02)
[2018-06-22] MEDS ORDERED: Fentanyl 100 MCG/2 ML VIAL ONE ×2 (08:54→11:31)
[2018-06-22] MEDS ORDERED: Lidocaine 2% Jelly 5 ML TUBE ONE (08:54)
[2018-06-22] MEDS ORDERED: Promethazine HCl 25 MG/ML VIAL IM PRN ×3 (10:05→11:32)
[2018-06-22] MEDS ORDERED: Promethazine HCl 25 MG/ML VIAL SLOW IVP PRN ×2 (10:05→11:26)
[2018-06-22] MEDS ORDERED: Ondansetron HCl/PF 4 MG/2 ML Vial IVP PRN ×2 (10:05→11:26)
[2018-06-22] MEDS ORDERED: Acetaminophen 500 MG TAB PO PRN (11:07)
--- NOTE | 2018-06-22 11:16 | OP ---
DATE OF PROCEDURE: 06/22/2018 PREOPERATIVE DIAGNOSIS: Multiple abscesses, Staphylococcus; perianal, buttocks, thigh creases, groins, and scrotum. POSTOPERATIVE DIAGNOSIS: Multiple abscesses, Staphylococcus; perianal, buttocks, thigh creases, groins, and scrotum. PROCEDURE: Dr. Ministerio Terrazas performed incision and drainage of scrotal abscesses and Dr. Mata performed incision and drainage and opening of more extensive abscesses; right and left buttocks/perianal, thigh crease, and groin. ANESTHESIA: General. No wound care called to place a wound VAC intraoperatively. DESCRIPTION OF PROCEDURE: The patient was taken to the operating room, where in the dorsal lithotomy position under general anesthesia, Dr. Terrazas performed further drainage of the scrotal abscess and groin's. I opened abscesses in the bilateral buttocks and thigh creases using cautery. This would facilitate wound care team. Wound Care Team called to place wound VAC postoperatively under anesthesia. The patient tolerated the procedure well. Job ID: [id number]
--- NOTE | 2018-06-22 11:17 | PRG ---
DATE OF SERVICE: 06/22/2018 SUBJECTIVE: Mr. Abarca underwent incision and drainage of tracts and buttocks in the OR today. He had a wound VAC applied by the wound care team. I have discussed with Dr. Bey and the patient is ready to be discharged home on Keflex. Outpatient wound care can be arranged with a wound VAC in a [facility] outpatient wound care appointment. He can be discharged home in the next 24 hours once outpatient wound VAC is arranged. Job ID: [id number]
[2018-06-22] MEDS ORDERED: HYDROmorphone 2 MG/ML VIAL SLOW IVP PRN (11:26)
[2018-06-22] MEDS ORDERED: Ondansetron PF 4 MG/2 ML Vial IVP PRN (11:32)
[2018-06-22] MEDS ORDERED: diphenhydrAMINE 50 MG/ML VIAL IVP PRN (11:32)
[2018-06-22] MEDS ORDERED: diphenhydrAMINE 50 MG/ML VIAL IM PRN (11:32)
[2018-06-22] MEDS ORDERED: Naloxone HCl 0.4 mg/ml Vial IV PRN (11:32)
[2018-06-22] MEDS ORDERED: Zolpidem Tartrate 5 MG TAB PO PRN (11:32)
[2018-06-22] MEDS ORDERED: HYDROmorphone 2 MG/ML VIAL ONE (11:35)
[2018-06-22] MEDS ORDERED: Communication Order-Pharmacy FS SCH (11:45)
[2018-06-22] MEDS: HYDROmorphone 10 mg/100 ml CADD IVPB PRN (12:31)
[2018-06-22] MEDS: Cephalexin 250 MG CAP PO SCH ×2 (12:35→21:02)
[2018-06-22] MEDS: Ferrous Sulfate 325 MG TAB PO SCH (12:40)
[2018-06-22] MEDS: Loratadine 10 MG TAB PO SCH (12:40)
[2018-06-22] MEDS: Saccharomyces boulardii 250 MG CAP PO SCH (12:40)
--- NOTE | 2018-06-22 12:41 | PDOC.PN ---
- Subjective Encounter Start Date: 06/22/18 Encounter Start Time: 12:40 Patient seen and examined, just returned from OR for scrotal I&D and wound vac placement, at bedside, all questions answered. - Objective Resuscitation Status - Order Detail: 06/14/18 01:20 Resuscitation Status Routine Resuscitation Status: FULL: Full Resuscitation Vital Signs & Weight: Vital Signs (12 hours) Temp Pulse Resp BP Pulse Ox 06/22/18 08:00 98.0 F 52 L 16 124/76 98 06/22/18 07:42 98 Weight Admit Weight 165 lb 11.2 oz Weight 165 lb 11.2 oz I&O: 06/21/18 06/22/18 06/23/18 06:59 06:59 06:59 Intake Total 1400 400 Output Total 450 Balance 1400 -50 Result Diagrams: 06/18/18 01:33 06/18/18 01:33 Phys Exam - Physical Examination Constitutional: NAD HEENT: PERRLA, moist MMs, sclera anicteric Neck: no nodes, no JVD, supple Respiratory: no wheezing, no rales, no rhonchi Cardiovascular: RRR, no significant murmur, no rub Gastrointestinal: soft, non-tender, no distention, positive bowel sounds Musculoskeletal: no edema, pulses present Dx/Plan (1) Abscess or cellulitis of perineum Code(s): [id number] - Status: Acute Comment: MSSA on Rocephin 1gm IV daily, s/ p I&D 06/17/18, d/c'd off Fentanyl TRANSFER CAR OPERATOR DRIER, WCT team for local care (2) Dehydration Code(s): E86.0 - DEHYDRATION Status: Acute Comment: on IVF (3) Sepsis Code(s): A41.9 - SEPSIS, UNSPECIFIED ORGANISM Status: Acute Comment: Secondary to #1, resolving (4) Hypothyroid Code(s): E03.9 - HYPOTHYROIDISM, UNSPECIFIED Status: Chronic Comment: Continue Levothyroxine 100mcg daily - Plan * s/p I&D and wound vac placement * cont current plan of care for now * cont abx * wound care * pain control * labs in AM * case and plan d/w patient at length, he understood and agreed with this plan.
--- NOTE | 2018-06-22 15:31 | OP ---
DATE OF PROCEDURE: 06/22/2018 PREOPERATIVE DIAGNOSIS: Right scrotal and perineal abscess with methicillin-resistant Staphylococcus aureus. POSTOPERATIVE DIAGNOSIS: Right scrotal and perineal abscess with methicillin-resistant Staphylococcus aureus. PROCEDURE PERFORMED: Exam under anesthesia and further drainage of right scrotal/inguinal infection. ANESTHESIA: General. ESTIMATED BLOOD LOSS: From my part of the case is probably 25 to 50 mL. FINDINGS: This patient had a significant amount of tenderness in the last couple of days in the right upper scrotum to the inguinal region with induration. Five days ago he had this area opened up on the right side of the scrotum and all the loculations broken down and the pus removed, but he is having a substantial amount of discomfort in this upper region. He also has developed some discomfort from some of his other perineal incisions and Dr. Mata is going to be addressing those. DESCRIPTION OF PROCEDURE: After obtaining written and verbal consent from the patient, he was taken to the operating suite. He was given a general anesthetic and oral obturator intubation. He had PlexiPulse placed on his lower extremities and turned on. He was placed in the dorsal lithotomy position. He was sterilely prepped and draped. A Campos catheter was sterilely inserted and bladder was drained and the catheter was clamped. I went ahead and started on the right scrotum from the previous incision and just worked my finger into the area of induration that was going up the right scrotum and towards right inguinal canal. I could not find any more loculated areas that had pus, but we were able to break through this into the what appeared to be much more normal inguinal region above it probably just 2 to 3 cm. Because of the direction this went, this was going to be hard for wound care to be able to get to, so I made a second incision just in the lower portion of the right inguinal region. I did this with a skin knife, controlled hemostasis with the electrocautery unit. Also this incision in the right scrotum that had been initially made was slightly opened to make it little bit easier for packing and we used instead of iodoform gauze just some 4 x 4's damp-to-dry. I did also reconnect the incision from the scrotum down towards the perineum. There was no further pus or areas of loculation in this area. Dr. Mata also worked on the perianal and perineal and prior incisions opening these up in order to get better drainage. We used fluffs, damp-to-dry, ABD pads, and wet panties. I will leave this catheter in at least overnight, so the patient does not have to get up to urinate. We will keep PlexiPulse on. Job ID: [id number]
[2018-06-23] MEDS: HYDROmorphone 10 mg/100 ml CADD IVPB PRN (00:08)
[2018-06-23] MEDS: cefTRIAXone\\ROCEPHIN 1 GM in Sodium Chloride 0.9% 100 ML IVPB SCH (02:04)
[2018-06-23] MEDS: Levothyroxine Sodium 100 MCG TAB PO SCH (05:35)
[2018-06-23] MEDS: Triple Antibiotic Ointment 30 GM TUBE TOP SCH (08:34)
[2018-06-23] MEDS: Lidocaine 4% Topical Sol 50 ML BOT TOP SCH (08:34)
[2018-06-23] MEDS: Colchicine 0.6 MG TAB PO SCH (08:34)
[2018-06-23] MEDS: Saccharomyces boulardii 250 MG CAP PO SCH (08:37)
[2018-06-23] MEDS: Loratadine 10 MG TAB PO SCH (08:37)
[2018-06-23] MEDS: Cephalexin 250 MG CAP PO SCH ×3 (08:37→20:45)
[2018-06-23] MEDS: Ferrous Sulfate 325 MG TAB PO SCH (08:37)
[2018-06-23] MEDS ORDERED: Morphine 2 MG/ML SYRINGE SLOW IVP PRN (11:21)
[2018-06-23] MEDS ORDERED: HYDROcodone/Acetaminophen 5/325 mg Tablet PO PRN ×2 (11:21→12:06)
--- NOTE | 2018-06-23 11:40 | PDOC.PN ---
- Subjective Encounter Start Date: 06/23/18 Encounter Start Time: 11:39 Patient seen and examined, no new issues, at bedside, all questions answered. - Objective Resuscitation Status - Order Detail: 06/14/18 01:20 Resuscitation Status Routine Resuscitation Status: FULL: Full Resuscitation Vital Signs & Weight: Vital Signs (12 hours) Temp Pulse Resp BP Pulse Ox 06/23/18 08:00 98.0 F 57 L 18 114/63 96 06/23/18 04:37 98.4 F 60 18 130/72 95 Weight Admit Weight 165 lb 11.2 oz Weight 165 lb 11.2 oz I&O: 06/22/18 06/23/18 06/24/18 06:59 06:59 06:59 Intake Total 400 Output Total 450 700 Balance -50 -700 Result Diagrams: 06/18/18 01:33 06/18/18 01:33 Additional Labs: Accuchecks 06/23/18 06/22/18 06/22/18 04:36 20:19 16:14 POC Glucose 104 190 H 142 H Phys Exam - Physical Examination Constitutional: NAD HEENT: PERRLA, moist MMs, sclera anicteric Neck: no nodes, no JVD, supple Respiratory: no wheezing, no rales, no rhonchi Cardiovascular: RRR, no significant murmur, no rub Gastrointestinal: soft, non-tender, no distention, positive bowel sounds Musculoskeletal: no edema, pulses present Dx/Plan (1) Abscess or cellulitis of perineum Code(s): [id number] - Status: Acute Comment: MSSA on Rocephin 1gm IV daily, s/ p I&D 06/17/18, d/c'd off Fentanyl BUSINESS OPERATIONS COORDINATOR, WCT team for local care (2) Dehydration Code(s): E86.0 - DEHYDRATION Status: Acute Comment: on IVF (3) Sepsis Code(s): A41.9 - SEPSIS, UNSPECIFIED ORGANISM Status: Acute Comment: Secondary to #1, resolving (4) Hypothyroid Code(s): E03.9 - HYPOTHYROIDISM, UNSPECIFIED Status: Chronic Comment: Continue Levothyroxine 100mcg daily - Plan * cont with current wound care * DC pain pump, PRN morphine + norco + gabapentin, will DC morphine in AM and cont with norco and gabapentin * abx * DC plans in 48hrs with gabapentin, patient has home pain meds and a pain med doc out patient who he can see for his pain regimen * case and plan d/w patient and at [facility], they understand and agree with this plan.
[2018-06-23] MEDS: Morphine 2 MG/ML SYRINGE SLOW IVP PRN ×2 (12:19→19:13)
[2018-06-23] MEDS: HYDROcodone/Acetaminophen 10/325 mg Tablet PO PRN ×3 (13:30→21:35)
[2018-06-23] MEDS: Gabapentin 300 MG CAP PO SCH (20:46)
[2018-06-23] MEDS ORDERED: Lorazepam 2 MG/ML VIAL SLOW IVP SCH (21:00)
[2018-06-24] MEDS: Morphine 2 MG/ML SYRINGE SLOW IVP PRN ×3 (00:46→15:02)
[2018-06-24] MEDS: HYDROcodone/Acetaminophen 10/325 mg Tablet PO PRN ×5 (01:44→20:30)
[2018-06-24] MEDS: Levothyroxine Sodium 100 MCG TAB PO SCH (06:17)
[2018-06-24] MEDS: Gabapentin 300 MG CAP PO SCH ×2 (08:46→20:30)
[2018-06-24] MEDS: Ferrous Sulfate 325 MG TAB PO SCH (08:46)
[2018-06-24] MEDS: Saccharomyces boulardii 250 MG CAP PO SCH (08:46)
[2018-06-24] MEDS: Cephalexin 250 MG CAP PO SCH ×3 (08:46→20:30)
[2018-06-24] MEDS: Loratadine 10 MG TAB PO SCH (08:47)
[2018-06-24 10:34] LABS: Anion Gap 10 mmol/L (10-20); BUN (Urea Nitrogen) 8 mg/dL (8.4-25.7); Calc. Creatinine Clearance 97 mL/min (70-130); Carbon Dioxide 32 mmol/L (22-29); Chloride 103 mmol/L (98-107); Estimated GFR-MDRD 90; Glucose 82 mg/dL (70-105); Potassium 4.1 mmol/L (3.5-5.1); Sodium 141 mmol/L (136-145)
[2018-06-24 10:40] LABS: #Basophils 0.1 thou/uL (0.0-0.2); #Eosinphils 0.2 thou/uL (0.0-0.7); #Lymphocytes 2.5 thou/uL (1.20-3.40); #Monocytes 0.6 thou/uL (0.11-0.59); #Neutrophils 5.3 thou/uL (1.40-6.50); %Basophils 0.7 % (0.0-1.0); %Eosinophils 2.8 % (0.0-10.0); %Lymphocytes 28.5 % (21.0-51.0); %Monocytes 7.2 % (0.0-10.0); %Neutrophils 60.8 % (42.0-75.0); Hemoglobin 14.3 g/dL (14.0-18.0); Mean Corpuscular HGB CONC 31.1 g/dL (32.0-36.0); Mean Corpuscular Hemoglobin 30.7 pg (27.0-31.0); Mean Corpuscular Volume 98.6 fL (78.0-98.0); Mean Platelet Volume 6.9 fL (7.4-10.4); Platelet Count 352 thou/uL (130-400); RBC Distribution Width 12.4 % (11.5-14.5); Red Blood Cell (RBC) Count 4.67 mill/uL (4.70-6.10); White Blood Cell (WBC) Count 8.8 thou/uL (4.8-10.8)
[2018-06-24] MEDS ORDERED: traMADol HCl 50 MG TAB PO PRN (11:33)
--- NOTE | 2018-06-24 11:33 | PDOC.PN ---
- Subjective Encounter Start Date: 06/24/18 Encounter Start Time: 11:32 Patient seen and examined, no new issues or complaints, states he feels well. All questions answered, at bedside. - Objective Resuscitation Status - Order Detail: 06/14/18 01:20 Resuscitation Status Routine Resuscitation Status: FULL: Full Resuscitation Vital Signs & Weight: Vital Signs (12 hours) Temp Pulse Resp BP Pulse Ox 06/24/18 08:00 97 06/24/18 07:08 97.9 F 51 L 17 141/89 H 97 Weight Admit Weight 165 lb 11.2 oz Weight 165 lb 11.2 oz I&O: 06/23/18 06/24/18 06/25/18 06:59 06:59 06:59 Intake Total 1960 Output Total 700 4000 Balance - Result Diagrams: 06/24/18 09:57 06/24/18 09:57 Additional Labs: Accuchecks 06/24/18 06/23/18 06/23/18 06:18 20:14 15:30 POC Glucose 79 81 121 H Phys Exam - Physical Examination Constitutional: NAD HEENT: PERRLA, moist MMs, sclera anicteric Neck: no nodes, no JVD, supple Respiratory: no wheezing, no rales, no rhonchi Cardiovascular: RRR, no significant murmur, no rub Gastrointestinal: soft, non-tender, no distention, positive bowel sounds Musculoskeletal: no edema, pulses present Dx/Plan (1) Abscess or cellulitis of perineum Code(s): [id number] - Status: Acute Comment: MSSA on Rocephin 1gm IV daily, s/ p I&D 06/17/18, d/c'd off Fentanyl CHANNEL MACHINE OPERATOR, WCT team for local care (2) Dehydration Code(s): E86.0 - DEHYDRATION Status: Acute Comment: on IVF (3) Sepsis Code(s): A41.9 - SEPSIS, UNSPECIFIED ORGANISM Status: Acute Comment: Secondary to #1, resolving (4) Hypothyroid Code(s): E03.9 - HYPOTHYROIDISM, UNSPECIFIED Status: Chronic Comment: Continue Levothyroxine 100mcg daily - Plan * DC morphine today, cont with norco + gabapentin, will add tramadol as well * wound vac arrangements to be made for C * DC plans in 24-48hrs once pain controlled and if labs acceptable * case and plan d/w patient and at length, they understood and agreed with this plan.
[2018-06-25] MEDS: HYDROcodone/Acetaminophen 10/325 mg Tablet PO PRN ×5 (00:43→20:44)
[2018-06-25] MEDS: Levothyroxine Sodium 100 MCG TAB PO SCH (06:26)
[2018-06-25] MEDS: Gabapentin 300 MG CAP PO SCH ×2 (09:55→20:43)
[2018-06-25] MEDS: Ferrous Sulfate 325 MG TAB PO SCH (09:55)
[2018-06-25] MEDS: Loratadine 10 MG TAB PO SCH (09:55)
[2018-06-25] MEDS: Saccharomyces boulardii 250 MG CAP PO SCH (09:55)
[2018-06-25] MEDS: Cephalexin 250 MG CAP PO SCH ×3 (09:59→20:43)
--- NOTE | 2018-06-25 14:15 | PDOC.PN ---
- Subjective Encounter Start Date: 06/25/18 Encounter Start Time: 14:14 Patient seen and examined, no new issues or complaints, all questions answered. - Objective Resuscitation Status - Order Detail: 06/14/18 01:20 Resuscitation Status Routine Resuscitation Status: FULL: Full Resuscitation Vital Signs & Weight: Vital Signs (12 hours) Temp Pulse Resp BP Pulse Ox 06/25/18 08:00 97.9 F 57 L 18 136/82 96 Weight Admit Weight 165 lb 11.2 oz Weight 165 lb 11.2 oz I&O: 06/24/18 06/25/18 06/26/18 06:59 06:59 06:59 Intake Total 1960 1270 Output Total 4000 Balance -2039 1270 Result Diagrams: 06/24/18 09:57 06/24/18 09:57 Additional Labs: Accuchecks 06/25/18 06/25/18 06/25/18 12:09 06:30 00:38 POC Glucose 82 87 129 H 06/24/18 06/24/18 06/24/18 23:39 19:46 15:20 POC Glucose 46 L* 77 76 Phys Exam - Physical Examination Constitutional: NAD HEENT: PERRLA, moist MMs, sclera anicteric Neck: no nodes, no JVD, supple Respiratory: no wheezing, no rales, no rhonchi Cardiovascular: RRR, no significant murmur, no rub Gastrointestinal: soft, non-tender, no distention, positive bowel sounds Musculoskeletal: no edema, pulses present Dx/Plan (1) Abscess or cellulitis of perineum Code(s): [id number] - Status: Acute Comment: MSSA on Rocephin 1gm IV daily, s/ p I&D 06/17/18, d/c'd off Fentanyl COAT CHECKER, WCT team for local care (2) Dehydration Code(s): E86.0 - DEHYDRATION Status: Acute Comment: on IVF (3) Sepsis Code(s): A41.9 - SEPSIS, UNSPECIFIED ORGANISM Status: Acute Comment: Secondary to #1, resolving (4) Hypothyroid Code(s): E03.9 - HYPOTHYROIDISM, UNSPECIFIED Status: Chronic Comment: Continue Levothyroxine 100mcg daily - Plan * wound vac in place * monitor for 24-48hrs * next vac change on saturday * will await clearance from surgical subspecialties prior to discharge * pain controlled * cont current medical management otherwise without any changes * case and plan d/w patient at length, he understood and agreed with this plan.
[2018-06-25] MEDS: traMADol HCl 50 MG TAB PO PRN ×2 (17:54→23:58)
[2018-06-26] MEDS: diphenhydrAMINE 25 MG CAP PO PRN (01:24)
[2018-06-26] MEDS: HYDROcodone/Acetaminophen 10/325 mg Tablet PO PRN ×6 (01:24→22:14)
[2018-06-26] MEDS: Levothyroxine Sodium 100 MCG TAB PO SCH (05:59)
[2018-06-26] MEDS: traMADol HCl 50 MG TAB PO PRN ×2 (08:37→19:46)
[2018-06-26] MEDS: Saccharomyces boulardii 250 MG CAP PO SCH (08:38)
[2018-06-26] MEDS: Gabapentin 300 MG CAP PO SCH ×2 (08:39→19:46)
[2018-06-26] MEDS: Loratadine 10 MG TAB PO SCH (08:39)
[2018-06-26] MEDS: Ferrous Sulfate 325 MG TAB PO SCH (08:41)
[2018-06-26] MEDS: Cephalexin 250 MG CAP PO SCH ×3 (10:03→19:46)
--- NOTE | 2018-06-26 11:37 | PDOC.PN ---
- Subjective Encounter Start Date: 06/26/18 Encounter Start Time: 11:36 Patient seen and examined, no new issues or complaints. - Objective Resuscitation Status - Order Detail: 06/14/18 01:20 Resuscitation Status Routine Resuscitation Status: FULL: Full Resuscitation Vital Signs & Weight: Vital Signs (12 hours) Temp Pulse Resp BP Pulse Ox 06/26/18 07:46 98.6 F 58 L 18 114/62 95 Weight Admit Weight 165 lb 11.2 oz Weight 165 lb 11.2 oz I&O: 06/25/18 06/26/18 06/27/18 06:59 06:59 06:59 Intake Total 1270 490 Balance 1270 490 Result Diagrams: 06/24/18 09:57 06/24/18 09:57 Additional Labs: Accuchecks 06/26/18 06/25/18 06/25/18 05:03 20:28 16:45 POC Glucose 110 134 H 80 06/25/18 12:09 POC Glucose 82 Phys Exam - Physical Examination Constitutional: NAD HEENT: PERRLA, moist MMs, sclera anicteric Neck: no nodes, no JVD, supple Respiratory: no wheezing, no rales, no rhonchi Cardiovascular: RRR, no significant murmur, no rub Gastrointestinal: soft, non-tender, no distention, positive bowel sounds Musculoskeletal: no edema, pulses present Dx/Plan (1) Abscess or cellulitis of perineum Code(s): [id number] - Status: Acute Comment: MSSA on Rocephin 1gm IV daily, s/ p I&D 06/17/18, 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, WCT team for local care (2) Dehydration Code(s): E86.0 - DEHYDRATION Status: Acute Comment: on IVF (3) Sepsis Code(s): A41.9 - SEPSIS, UNSPECIFIED ORGANISM Status: Acute Comment: Secondary to #1, resolving (4) Hypothyroid Code(s): E03.9 - HYPOTHYROIDISM, UNSPECIFIED Status: Chronic Comment: Continue Levothyroxine 100mcg daily - Plan * wound care and vac change to be done tmrw * pain controlled * cont abx for now * DC plans in AM if ok with surgical subspecialties and if C arranged * no other changes in plan of care for now * case and plan d/w patient at length, he understood and agreed with this plan.
[2018-06-26] MEDS ORDERED: Lorazepam 1 MG TAB PO PRN (12:50)
[2018-06-27] MEDS: HYDROcodone/Acetaminophen 10/325 mg Tablet PO PRN ×4 (01:53→13:17)
[2018-06-27] MEDS: diphenhydrAMINE 25 MG CAP PO PRN (01:53)
[2018-06-27] MEDS: Levothyroxine Sodium 100 MCG TAB PO SCH (06:07)
[2018-06-27 08:00] VITALS: BP 102/62; TEMP 98
[2018-06-27] MEDS: Cephalexin 250 MG CAP PO SCH ×2 (10:34→14:03)
[2018-06-27] MEDS: Loratadine 10 MG TAB PO SCH (10:40)
[2018-06-27] MEDS: Saccharomyces boulardii 250 MG CAP PO SCH (10:40)
[2018-06-27] MEDS: Gabapentin 300 MG CAP PO SCH (10:40)
[2018-06-27] MEDS: Ferrous Sulfate 325 MG TAB PO SCH (11:08)
[2018-06-27] MEDS: traMADol HCl 50 MG TAB PO PRN (12:16)
--- NOTE | 2018-06-27 13:15 | PDOC.GSPN ---
Surgery Progress Note: Subj - Subjective Narrative: c/o difficulty wit vac seal Surgery Progress Note: Obj - Vital signs Vital signs: Vital Signs - Most Recent Temp Pulse Resp BP Pulse Ox 98.0 F 53 L 16 102/62 96 06/27/18 07:57 06/27/18 07:57 06/27/18 07:57 06/27/18 07:57 06/27/18 07:57 - Physical Exam General: no distress Wound: wound vac (in place but leaking) Surgery Progress Note: Results - Labs Result Diagrams: 06/24/18 09:57 06/24/18 09:57 Lab results: Laboratory Results - last 24 hr 06/27/18 06:13 POC Glucose 79 Surgery Progress Note: A/P - Problem (1) Abscess or cellulitis of perineum Current Visit: Yes Code(s): [id number] - Status: Acute - Plan Plan: wound vac not sealing/working well for this location -he is already well schooled in wet to dry -home with wet to dry -f/u nh Saturday
--- NOTE | 2018-06-27 13:27 | PDOC.EVN ---
Event Note - Event Note Event Note: DC SUMMARY #[id number]
[2018-06-27] MEDS ORDERED: Morphine 2 MG/ML SYRINGE SLOW IVP SCH (13:30)
--- NOTE | 2018-06-28 02:08 | DIS ---
DATE OF ADMISSION: 06/13/2018 DATE OF DISCHARGE: 06/27/2018 ADMITTING DIAGNOSES: Scrotal cellulitis, perineal abscess, history of hypertension, hypothyroidism, as well as hyperlipidemia. DISCHARGE DIAGNOSES: Perineal infection status post multiple I and Ds, hypertension, hyperlipidemia, hypothyroidism, stable. HOSPITAL COURSE: This is a 57-year-old male, presenting with swelling and abscesses in the perineal region. The patient did not have any STDs or anything along those lines. Microbiology was done. The patient was found to have no blood cultures that were positive, however, did have staph aureus on the scrotal abscess culture. The patient had multiple I and Ds done with wound VAC initially being placed. The patient was watched in the hospital for 2 weeks with recurrent wound care debridements. Urology and surgery followed the patient very closely, as well as Infectious Disease and Internal Medicine team. The patient upon the time of discharge was stable, given Keflex to be taken for 10 days as well as his home pain medication regimen. The patient was to be discharged home with wet-to-dry dressings to be done at home. FOLLOWUP: Follow up with surgery within 3 to 4 days the Saturday following the discharge, which was in 3 days. The patient's condition upon the time of discharge was stable. The patient did not have any nausea, vomiting, diarrhea, constipation, chest pain, fevers, chills or shortness of breath. The patient was given pain medications prior to discharge as well. Lab studies within acceptable limits. The patient was advised to follow up with Surgery within 2 to 3 days, as well as his primary care physician and pain medication physician within 1 week. CONDITION: At this point in time of discharge was stable. Case and plan discussed with the patient and at length. Clearance obtained from all subspecialists prior to discharge. The patient and understood and agreed with this plan. DISPOSITION: Home. FOLLOWUP: Follow up with PCP, General Surgery within 1 week. MEDICATIONS: See MAR. ACTIVITY: As tolerated with assistance as needed. DIET: Low-fat, low-calorie, high-fiber diet. CONDITION: Stable. PROGNOSIS: Good. Case and plan once again discussed with the patient and family at length. They understand and agree with this plan. Job ID: [id number]
== END 2018-06-27 14:30 | disposition home or self-care (01) | DRG 854 ==
LOC: ERS 15:48 → T4-A 21:20
PROVIDERS: ADMIT Internal Medicine; ATTEND Internal Medicine
PROC: 0Y960ZZ Drainage of Left Inguinal Region, Open Approach (ICD-10-PCS; principal; 2018-06-17)
PROC: 0V950ZX Drainage of Scrotum, Open Approach, Diagnostic (ICD-10-PCS; 2018-06-17)
PROC: 0Y950ZZ Drainage of Right Inguinal Region, Open Approach (ICD-10-PCS; 2018-06-22)
PROC: 0V950ZX Drainage of Scrotum, Open Approach, Diagnostic (ICD-10-PCS; 2018-06-22)
PROC: 0J990ZX Drainage of Buttock Subcutaneous Tissue and Fascia, Open Approach, Diagnostic (ICD-10-PCS; 2018-06-22)
DX: A41.9 Sepsis, unspecified organism (principal); L02.215 Cutaneous abscess of perineum; L02.31 Cutaneous abscess of buttock; N49.2 Inflammatory disorders of scrotum; E03.9 Hypothyroidism, unspecified; E29.1 Testicular hypofunction; M10.9 Gout, unspecified; G89.4 Chronic pain syndrome; I12.9 Hypertensive chronic kidney disease with stage 1 through stage 4 chronic kidney disease, or unspecified chronic kidney disease; E86.0 Dehydration; N18.2 Chronic kidney disease, stage 2 (mild); E78.5 Hyperlipidemia, unspecified; B95.62 Methicillin resistant Staphylococcus aureus infection as the cause of diseases classified elsewhere; F41.9 Anxiety disorder, unspecified; E87.6 Hypokalemia; N20.0 Calculus of kidney; L73.9 Follicular disorder, unspecified; J40 Bronchitis, not specified as acute or chronic; Z86.711 Personal history of pulmonary embolism; Z79.899 Other long term (current) drug therapy; Z83.3 Family history of diabetes mellitus; Z98.84 Bariatric surgery status; Z88.8 Allergy status to other drugs, medicaments and biological substances; Z87.442 Personal history of urinary calculi; Z85.828 Personal history of other malignant neoplasm of skin; Z98.52 Vasectomy status; Z86.39 Personal history of other endocrine, nutritional and metabolic disease
CPT/HCPCS: 36415; 36416; 71045; 71250; 72193; 76857; 76870; 80048; 80053; 80202; 81001; 83605; 83735; 85007; 85025; 85027; 87040; 87070; 87077; 87102; 87116; 87186; 87205; 87206; 96361; 96365; 96367; 96375; J0131; J0696; J1100; J1170; J2001; J2060; J2270; J2405; J2543; J2704; J3010; J3370; J3480; J3490; Q0163; Q9966

== ENCOUNTER 2018-08-19 14:01 | Observation (INO) | payer MEDICARE ==
[2018-08-19] MEDS ORDERED: cefTRIAXone\\ROCEPHIN 2 GM in Sodium Chloride 0.9% 100 ML IVPB SCH (16:15)
[2018-08-19 16:25] VITALS: BMI 25.4
[2018-08-19] MEDS ORDERED: Sodium Chloride 0.9% 1,000 ML IV SCH (16:45)
[2018-08-19 16:51] LABS: #Basophils 0.1 thou/uL (0.0-0.2); #Eosinphils 0.2 thou/uL (0.0-0.7); #Monocytes 0.8 thou/uL (0.11-0.59); #Neutrophils 6.5 thou/uL (1.40-6.50); %Basophils 0.9 % (0.0-1.0); %Eosinophils 2.1 % (0.0-10.0); %Lymphocytes 20.9 % (21.0-51.0); %Neutrophils 68.2 % (42.0-75.0); Hemoglobin 15.1 g/dL (14.0-18.0); Mean Corpuscular HGB CONC 33.2 g/dL (32.0-36.0); Mean Corpuscular Hemoglobin 31.6 pg (27.0-31.0); Mean Corpuscular Volume 95.3 fL (78.0-98.0); Mean Platelet Volume 7.4 fL (7.4-10.4); Platelet Count 217 thou/uL (130-400); RBC Distribution Width 12.8 % (11.5-14.5); Red Blood Cell (RBC) Count 4.79 mill/uL (4.70-6.10); White Blood Cell (WBC) Count 9.5 thou/uL (4.8-10.8)
[2018-08-19] MEDS ORDERED: diphenhydrAMINE 25 MG CAP PO PRN (17:11)
[2018-08-19] MEDS ORDERED: Lorazepam 1 MG TAB PO PRN (17:12)
[2018-08-19 17:24] LABS: Anion Gap 11 mmol/L (10-20); BUN (Urea Nitrogen) 11 mg/dL (8.4-25.7); Calc. Creatinine Clearance 90 mL/min (70-130); Calcium 8.9 mg/dL (7.8-10.44); Carbon Dioxide 21 mmol/L (22-29); Chloride 109 mmol/L (98-107); Estimated GFR-MDRD 79; Glucose 68 mg/dL (70-105); Sodium 137 mmol/L (136-145)
[2018-08-19] MEDS: HYDROcodone/Acetaminophen 10/325 mg Tablet PO PRN (17:47)
--- NOTE | 2018-08-19 19:29 | CON ---
DATE OF CONSULTATION: 08/19/2018 REASON FOR CONSULTATION: Inflammatory changes penile shaft skin and scrotal skin. HISTORY OF PRESENT ILLNESS: A 57-year-old whom I had evaluated in May when he presented with multiple skin abscesses in the perineal area and the scrotum. He spent many days in the hospital, had numerous surgical procedures, eventually all the areas healed and he was discharged. The organism retrieved was methicillin-sensitive Staphylococcus aureus, and then over the past 24 hours, he noticed pruritus in the scrotal skin and started to rub it with some rag and he notice skin swelling of the penile shaft skin and some of them had edematous changes. He came to the emergency room and was admitted for observation. No fever or chills. No headaches. No respiratory symptoms or abdominal pain. No diarrhea. No genitourinary symptoms outside the area of involvement. No joint symptoms. No neurological symptoms. PAST MEDICAL HISTORY: Includes sleeve gastrectomy, gastric bypass, weight loss, nesidioblastosis, dumping syndrome, pulmonary embolism, hypogonadism on testosterone supplement, nephrolithiasis, gout, and recent skin abscesses in the perineal and scrotal area. PAST SURGICAL HISTORY: Cholecystectomy, skin cancer removal, and the other surgeries as mentioned above. ALLERGIES: NONE REPORTED. SOCIAL HISTORY: Retired. Never smoker. CURRENT MEDICATIONS: 1. [place]. 2. Ceftriaxone. 3. Colchicine. 4. Diphenhydramine. 5. Levothyroxine. 6. Loratadine. 7. Lorazepam. 8. Tramadol. PHYSICAL EXAMINATION: VITAL SIGNS: Normal. He is afebrile. SKIN: Shows what appears to be angioedema of the penile shaft skin and some mild erythema of the scrotal skin as well. No evidence of skin abscess. No cellulitis. No lymphadenopathy. HEENT: Normal. LUNGS: Clear. HEART: S1 and S2. Regular rate. ABDOMEN: Soft, not distended or tender. EXTREMITIES: Moves all extremities equally. LABORATORY DATA: White cell count 9.5, hemoglobin 15, and platelets 217 with 68% neutrophils. ASSESSMENT AND PLAN: History of gastric bypass, previous scrotal skin and perineal abscesses due to methicillin-susceptible Staphylococcus aureus, who now presents with what appears to be angioedema and localized type 1 hypersensitivity reaction to probably some form of contact dermatitis to exposure, may be material from underwear. We will apply topical corticosteroids and antihistaminics and observe. Job ID: [id number]
[2018-08-19] MEDS ORDERED: Betamethasone 0.1% Cream 15 GM TUBE TOP PRN (21:00)
[2018-08-19] MEDS: traMADol HCl 50 MG TAB PO SCH (21:27)
[2018-08-19] MEDS: Clindamycin 150 MG CAP PO SCH (21:27)
--- NOTE | 2018-08-19 21:31 | CON ---
DATE OF CONSULTATION: 08/19/2018 HISTORY OF PRESENT ILLNESS: This is a 57-year-old male who is being placed in the hospital under observation for possible penile cellulitis. He has a history of having a staph infection of his perineum and inguinal region. This was in late May and was in the hospital for about 3 weeks taking him into June, treated with Rocephin, sent out on Keflex. He required 2 different drainage procedures during that admission, had a great deal of pain and discomfort from it. He had been doing well. His wounds were healing up nicely and then today he noticed getting out of the shower that the penis was red and puffy. It was not tender. He came over to [facility]'s ER and I saw him down there. He was actually not checked into the ER as the ER was crowded, so I saw him in the triage room and he had some swelling of the skin and shaft of the penis. The glans was not involved. The scrotum at that point was not involved. It was not tender. There was no induration. There was no evidence of any drainage or fluctuance to be noted. No inguinal adenopathy. As mentioned, his other inguinal incisions had healed. He has not been running a fever, chills, been voiding okay. After seeing him, I contacted Dr. Bey and it was felt it would be best to probably put him in under observation and start him on some Rocephin and some Diflucan. I went ahead and arranged this for an observation bed for him and I am seeing him now after he has been admitted. He started to notice that the scrotum is starting to become red and swelling a little bit also as well as the penis. His white count is normal. His CBC is normal. His chemical survey is not back yet. He is afebrile with stable vital signs. He is not tachycardic. He has not yet started antibiotics. Dr. Bey was actually seeing him just before I did and he feels like this may not be infection at all, but it may just be more of a topical dermatitis or a reaction and we are going to treat him with some non-antibiotic treatment with some creams and some steroids. We will recheck him, so we will hold antibiotics at this time. He does have a rather drawn-out medical history. Staffing went through as documented from late May to early June with those procedures and that hospitalization, but in addition to that, he has had morbid obesity and underwent a gastric bypass for that. He ended up having some plastic surgery procedures done for cosmetic reasons and did develop some abscesses after that requiring drainage. He has hypothyroidism. He has hypogonadism on replacement. He has had a history of a pulmonary embolism. He has had a history of nesidioblastosis of the pancreas. He has had a history of kidney stones and a history of gout. He has chronic pain syndrome, especially with his lower extremities and feet. He has had cholecystectomy. He has had some skin cancers removed. He has had a vasectomy. He has had hernia repair and a partial thyroidectomy. ALLERGIES: HE HAS HAD SOME TROUBLE WITH NSAIDS. ROUTINE MEDICATIONS: Include: 1. [place], which he takes at home for chronic pain. 2. He takes p.r.n. lorazepam. 3. He takes Zyrtec. 4. Colchicine, which he is on right now, because of problems with gout. 5. Benadryl. 6. Iron. 7. Synthroid. 8. Tramadol. SOCIAL HISTORY: He does not smoker or drink any significant alcohol at this point. PHYSICAL EXAMINATION: LUNGS: Clear. ABDOMEN: Soft and flat. GENITOURINARY: The penis is circumcised. It is red around the shaft circumferentially. There is no fluctuance. There is no induration. There is no significant tenderness. There is no lymphadenopathy. At this point, the scrotum is also slightly red. It was not earlier in the day. RECTAL: Not done. IMPRESSION: Penile swelling and edema, probably not cellulitis. We will at this point, hold the antibiotics. We will treat him with some steroid creams and we will re-evaluate him tomorrow. Hopefully, it will be improving and he may go home. Job ID: [id number]
[2018-08-20] MEDS: HYDROcodone/Acetaminophen 10/325 mg Tablet PO PRN ×2 (05:15→11:06)
[2018-08-20] MEDS ORDERED: Levothyroxine Sodium 100 MCG TAB PO SCH (06:00)
[2018-08-20] MEDS ORDERED: Ferrous Sulfate 325 MG TAB PO SCH (08:00)
[2018-08-20] MEDS: Clindamycin 150 MG CAP PO SCH (08:14)
[2018-08-20] MEDS: traMADol HCl 50 MG TAB PO SCH (08:14)
[2018-08-20] MEDS ORDERED: Colchicine 0.6 MG TAB PO SCH (09:00)
[2018-08-20] MEDS ORDERED: Prevnar 13-Val Conj/PF 0.5 ML SYRINGE IM ONE (09:00)
[2018-08-20] MEDS ORDERED: Loratadine 10 MG TAB PO SCH ×2 (09:00)
[2018-08-20 11:08] VITALS: TEMP 98.4
--- NOTE | 2018-08-20 11:36 | DIS ---
DATE OF ADMISSION: 08/19/2018 DATE OF DISCHARGE: 08/20/2018 HOSPITAL COURSE: This patient was admitted under 23-hour observation with possible penile cellulitis. He has had a history of being in the hospital for a number of weeks with a Staph infection involving the perineum and inguinal region. He was brought in and seen by Infectious Disease. They felt this was probably not an infection, but more likely some type of dermatitis/hypersensitive reaction from contact dermatitis. He recommended to use topical corticosteroids and antihistamine, so he was given some Benadryl and Valisone 0.1% cream. He had normal white count. He has been afebrile overnight. He is still mildly edematous and mildly erythematous today, but it has much improved from what it was yesterday. We will let him go home. He has not been on any antibiotics and will not go home on any antibiotics. He will go home on his regular medicines. He has a tube of the Valisone cream that he will take home with him and he may use some [id number] Benadryl also. DISCHARGE CONDITION: Stable. ACTIVITY: Ad joesph. DIET: Regular. Job ID: [id number]
[2018-08-20 11:38] VITALS: BP 154/64
== END 2018-08-20 11:37 | disposition home or self-care (01) ==
LOC: SURG B 15:33
PROVIDERS: ADMIT Urology; ATTEND Urology
DX: N48.89 Other specified disorders of penis (principal); E29.1 Testicular hypofunction; E03.9 Hypothyroidism, unspecified; M10.9 Gout, unspecified; G89.4 Chronic pain syndrome; Z86.14 Personal history of Methicillin resistant Staphylococcus aureus infection; Z98.84 Bariatric surgery status; Z90.49 Acquired absence of other specified parts of digestive tract; Z88.6 Allergy status to analgesic agent; Z88.8 Allergy status to other drugs, medicaments and biological substances; Z79.2 Long term (current) use of antibiotics; Z79.891 Long term (current) use of opiate analgesic; Z79.899 Other long term (current) drug therapy
CPT/HCPCS: 80048; 85025; 90670; G0009; 36415; 90471; G0378; G0379; J0696; J3490; Q0163